=== PATIENT | female | born 1980 | race Caucasian/White ===

== ENCOUNTER 2017-04-12 20:06 | Inpatient (IN) | payer OTHER, BC ==
[2017-04-12] MEDS ORDERED: Sodium Chloride 0.9% 1,000 ML IV STA (21:12)
[2017-04-12 21:29] LABS: BASO # 0.1 K/uL (0.0-0.2); BASO % 1.4 % (0.0-2.0); EOS # 0.1 K/uL (0.0-0.7); EOS % 1.2 % (0.0-4.0); HEMATOCRIT 37.4 % (34.0-47.0); LYMPH # 3.4 K/uL (1.0-4.3); LYMPH % 48.9 % (20.0-40.0); MEAN CELL VOLUME 95.2 fl (81.0-99.0); MEAN CORPUSCULAR HEMOGLOBIN 31.7 pg (27.0-31.0); MEAN CORPUSCULAR HGB CONC 33.3 g/dL (33.0-37.0); MEAN PLATELET VOLUME 8.3 fl (7.2-11.7); MONO # 0.6 K/uL (0.0-0.8); MONO % 8.6 % (0.0-10.0); NEUT # 2.8 K/uL (1.8-7.0); NEUT % 39.9 % (50.0-75.0); NRBC % 0.1 % (0.0-0.0); RED CELL DISTRIBUTION WIDTH 13.4 % (11.5-14.5)
[2017-04-12 21:39] LABS: ALB/GLOB RATIO 1.1 (1.0-2.1); ALKALINE PHOSPHATASE 65 U/L (38-126); ALT/SGPT 36 U/L (9-52); AST/SGOT 50 U/L (14-36); BILIRUBIN,TOTAL 0.4 mg/dl (0.2-1.3); BLOOD UREA NITROGEN 12 mg/dl (7-17); CALCIUM 9.4 mg/dL (8.4-10.2); CARBON DIOXIDE 26 mmol/L (22-30); CHLORIDE 105 mmol/L (98-107); GFR AFRICAN-AMERICAN > 60; GLUCOSE,RANDOM 90 mg/dL (65-105); POTASSIUM 4.1 MMOL/L (3.6-5.0); SODIUM 139 mmol/l (132-148); TOTAL PROTEIN 8.1 G/DL (6.3-8.2)
[2017-04-12] MEDS ORDERED: Piperacillin/Tazobact 4.5 GM in Sodium Chloride 0.9% 100 ML IVPB ONE (22:00)
--- NOTE | 2017-04-12 22:42 | ED PDOC ---
HPI: Back Time Seen by Provider: 04/12/17 20:20 Chief Complaint (Nursing): Back Pain Chief Complaint (Provider): Buttock pain History Per: Patient History/Exam Limitations: no limitations Onset/Duration Of Symptoms: Days (x2-3 months) Current Symptoms Are (Timing): Still Present Additional Complaint(s): Ingrid Macario is a 36 year old female who presents to the emergency department with a complaint of increasing bilateral buttock pain (left > right) with painful lumpy massess associated with lower back pain, swelling and redness ongoing for 2-3 months status post injection in buttock area. Denied any fever, chills, vomiting, or diarrhea. PT was taking oral antibiotics as outpatient but cant remember the name. but pt has persistence of symptoms. PMD: none provided Past Medical History Reviewed: Historical Data, Nursing Documentation, Vital Signs Vital Signs: Last Vital Signs Temp 97.4 F L 04/12/17 20:12 Pulse 103 H 04/12/17 20:12 Resp 18 04/12/17 20:12 BP 131/75 04/12/17 20:12 Pulse Ox 100 04/12/17 20:12 - Medical History PMH: No Chronic Diseases - Surgical History Other surgeries: breast augmentation - Family History Family History: States: Unknown Family Hx - Social History Current smoker - smoking cessation education provided: No Alcohol: None Drugs: Denies - Home Medications Home Medications: Ambulatory Orders Medication Instructions Recorded ARIPiprazole [Abilify] 10 mg PO DAILY 04/13/17 Clonazepam [Klonopin] 0.5 mg PO DAILY 04/13/17 Gabapentin [Neurontin] 100 mg PO BID 04/13/17 Mirtazapine [Remeron] 30 mg PO DAILY 04/13/17 Spironolactone [Aldactone] 50 mg PO BID 04/13/17 Valacyclovir HCl [Valacyclovir] 500 mg PO DAILY 04/13/17 - Allergies Allergies/Adverse Reactions: Allergies Allergy/AdvReac Type Severity Reaction Status Date / Time No Known Allergies Allergy Verified 04/12/17 20:11 Review of Systems ROS Statement: Except As Marked, All Systems Reviewed And Found Negative Constitutional: Negative for: Fever, Chills Gastrointestinal: Positive for: Other (increasing bilateral buttock pain with redness and swelling). Negative for: Vomiting, Diarrhea Musculoskeletal: Positive for: Back Pain (lower) Physical Exam - Reviewed Nursing Documentation Reviewed: Yes Vital Signs Reviewed: Yes - Physical Exam Appears: Positive for: Well, Non-toxic, No Acute Distress Head Exam: Positive for: ATRAUMATIC, NORMAL INSPECTION, NORMOCEPHALIC Skin: Positive for: Normal Color, Warm, Dry Neck: Positive for: Normal Cardiovascular/Chest: Positive for: Regular Rate, Rhythm Respiratory: Positive for: Normal Breath Sounds. Negative for: Respiratory Distress Gastrointestinal/Abdominal: Positive for: Normal Exam, Bowel Sounds, Soft Back: Positive for: Normal Inspection. Negative for: L CVA Tenderness, R CVA Tenderness Rectal: Positive for: Tenderness (buttock has areas of induration, tenderness discoloration on upper region possible underlying abscess. surrounding erythema. no open wounds. ). Negative for: Normal Exam Extremity: Positive for: Normal ROM. Negative for: Pedal Edema, Deformity Neurologic/Psych: Positive for: Alert, dental surgery doctor II-XII, Oriented - Laboratory Results Result Diagrams: 04/12/17 21:20 04/12/17 21:20 - ECG O2 Sat by Pulse Oximetry: 100 (RA) Pulse Ox Interpretation: Normal Medical Decision Making Medical Decision Making: Initial Impression: cellulitis/abscess S/P buttock injection Initial Plan: * Toradol 30mg IV - for pain * NS 1,000ml IV per 150mls/hr * Zosyn 100ml IVPB * Blood culture Time: 7 pt will need admission for failure of outpt treatment with oral antibiotics - so will need iv abx. first dose given in the ER. Dr. Feldman plastic surgeon road monkey was aware of patient -will see pt for evaluation of induration/abscess/cellulitis in buttock area. pt made aware of plan and agreeable. admit to hospitalist, Dr García made aware and accepted admission. final dx complicated cellulitis (failure of outpatient antibiotics) admit for iv abx and surgery consult Scribe Attestation: Documented by Xi Lassiter, acting as a scribe for Vicente August MD. Provider Scribe Attestation: All medical record entries made by the Scribe were at my direction and personally dictated by me. I have reviewed the chart and agree that the record accurately reflects my personal performance of the history, physical exam, medical decision making, and the department course for this patient. I have also personally directed, reviewed, and agree with the discharge instructions and disposition. Disposition - Clinical Impression Clinical Impression: Buttock pain, Abscess, Cellulitis - Patient ED Disposition Is Patient to be Admitted: Yes Doctor Will See Patient In The: Hospital Counseled Patient/Family Regarding: Diagnosis - Disposition Disposition Time: 22:00 Condition: STABLE
--- NOTE | 2017-04-12 23:44 | CP.PCM.HP ---
History of Present Illness - History of Present Illness History of Present Illness: PCP: Not on Staff Chief Complaint: Pain to the Buttocks and to the lower back/Fever HPI: 36 years old female with hx of seizure, Anxiety depression, Fat injected into the Buttocks and approximately one year ago an unknown substance injected in the Buttocks for augmentation. She comes referring a few days of worsening pain to both Buttocks ( left> right) radiating across the lower back and associated with painful lumpy masses and erythema at the buttocks. She referred fever 2 days prior to this admission with nausea. no SOB, Chest pains, Diarrhea , Dysuria. 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 absent: Anorexia, Chills - EENT Eyes: Requires Corrective Lenses. absent: Diplopia, Floaters, Photophobia, Sees Flashes Ears: absent: Decreased Hearing, Ear Discharge, Ear Pain, Tinnitus Nose/Mouth/Throat: absent: Epistaxis, Nasal Congestion, Nasal Discharge, Sinus Pain, Sinus Pressure - Cardiovascular Cardiovascular: absent: Chest Pain, Dyspnea, Edema - Respiratory Respiratory: absent: Cough, Dyspnea, Wheezing, Stridor - Gastrointestinal Gastrointestinal: Nausea. absent: Abdominal Pain, Constipation, Diarrhea - Genitourinary Genitourinary: Urinary Frequency. absent: Dysuria, Flank Pain, Hematuria - Musculoskeletal Musculoskeletal: Back Pain Additional comments: lower back pain. Pain to both left and right Buttocks. - Integumentary Integumentary: Acne. absent: Pruritus, Rash - Neurological Neurological: Headaches. absent: Confusion, Focal Weakness, Paresthesias, Weakness - Psychiatric Psychiatric: Anxiety, Depression. absent: Panic Attacks - Endocrine Endocrine: absent: Palpitations, Polydipsia, Polyphagia, Polyuria - Hematologic/Lymphatic Hematologic: absent: Easy Bleeding, Easy Bruising Past Patient History - Past Social History Smoking Status: Never Smoked Chewing Tobacco Use: No Cigar Use: No Alcohol: Social Drugs: Cannabis Home Situation {Lives}: Alone - CARDIAC Hx Cardiac Disorders: No - PULMONARY Hx Respiratory Disorders: No - NEUROLOGICAL Hx Migraine: Yes - HEENT Hx HEENT Problems: No - RENAL Hx Chronic Kidney Disease: No - ENDOCRINE/METABOLIC Hx Endocrine Disorders: No - HEMATOLOGICAL/ONCOLOGICAL Hx Blood Disorders: No - INTEGUMENTARY Hx Dermatological Problems: No - MUSCULOSKELETAL/RHEUMATOLOGICAL Hx Back Pain: Yes - GASTROINTESTINAL Hx Gastrointestinal Disorders: No - GENITOURINARY/GYNECOLOGICAL Hx Genitourinary Disorders: No Other/Comment: Breast Augmentation x4. Buttocks Augmentation - PSYCHIATRIC Hx Anxiety: Yes Hx Bipolar Disorder: Yes Hx Depression: Yes - SURGICAL HISTORY Hx Hysterectomy: Yes - ANESTHESIA Hx Anesthesia: Yes Hx Anesthesia Reactions: No Meds Allergies/Adverse Reactions: Allergies Allergy/AdvReac Type Severity Reaction Status Date / Time No Known Allergies Allergy Verified 04/12/17 20:11 Physical Exam - Constitutional Appears: No Acute Distress - Head Exam Head Exam: ATRAUMATIC, NORMAL INSPECTION, NORMOCEPHALIC - Eye Exam Eye Exam: EOMI, Normal appearance Pupil Exam: NORMAL ACCOMODATION, PERRL - ENT Exam ENT Exam: Mucous Membranes Moist, Normal Exam, Normal External Ear Exam, Normal Oropharynx - Neck Exam Neck exam: Positive for: Full Rom, Normal Inspection. Negative for: Lymphadenopathy, Tenderness - Respiratory Exam Respiratory Exam: Clear to Auscultation Bilateral. absent: Rales, Rhonchi, Wheezes - Cardiovascular Exam Cardiovascular Exam: REGULAR RHYTHM, RRR, +S1, +S2. absent: Gallop, JVD - GI/Abdominal Exam GI & Abdominal Exam: Normal Bowel Sounds, Soft. absent: Mass, Organomegaly, Tenderness - Rectal Exam Rectal Exam: Deferred - Extremities Exam Extremities exam: Positive for: full ROM, normal inspection. Negative for: calf tenderness, joint swelling, pedal edema - Back Exam Back exam: NORMAL INSPECTION. absent: CVA tenderness (L), CVA tenderness (R) Additional comments: Buttocks: With erythema at both rytyo17by diameter each, with areas hard and tender on palpation. - Neurological Exam Neurological exam: Alert, CN II-XII Intact, Oriented x3, Reflexes Normal - Psychiatric Exam Psychiatric exam: Normal Affect, Normal Mood - Skin Skin Exam: Dry, Intact, Warm Results - Vital Signs Recent Vital Signs: Last Vital Signs Temp 97.4 F L 04/12/17 20:12 Pulse 103 H 04/12/17 20:12 Resp 18 04/12/17 20:12 BP 131/75 04/12/17 20:12 Pulse Ox 100 04/12/17 22:49 - Labs Result Diagrams: 04/12/17 21:20 04/12/17 21:20 Assessment & Plan - Assessment and Plan (Free Text) Assessment: #. Cellulitis with soft tissue Necrosis at both Buttocks #. Lower back pain Plan: 36 years old female with hx of seizure, Anxiety depression, Fat injected into the Buttocks and approximately one year ago an unknown substance injected in the Buttocks for augmentation. She comes referring a few days of worsening pain to both Buttocks ( left> right) radiating across the lower back and associated with painful lumpy masses and erythema at the buttocks. #. Cellulitis with soft tissue Necrosis at both Buttocks - Admit for IV antibiotics - Zosyn - pain management with Zosyn - follow Blood cultures #. Lower back pain - Pain management with Toradol - MRI of lower back anf pelvis without contrast. #. DVT prophylaxis with Lovenox #. Code Status: Full - Date & Time Date: 04/12/17 Time: 23:44
[2017-04-13] MEDS: Piperacillin/Tazobact 3.375 GM in Sodium Chloride 0.9% 100 ML IVPB SCH ×2 (04:40→11:28)
--- NOTE | 2017-04-13 08:45 | CP.PCM.PN ---
Subjective - Date & Time of Evaluation Date of Evaluation: 04/13/17 Time of Evaluation: 08:44 - Subjective Subjective: pt doing well this morning no complaints for MRI HD stable nad Objective - Vital Signs/Intake and Output Vital Signs (last 24 hours): Temp Pulse Resp BP Pulse Ox 98.4 F 79 18 106/71 100 04/13/17 07:24 04/13/17 07:24 04/13/17 07:24 04/13/17 07:24 04/13/17 07:24 Vitals reviewed Constitutional- cooperative, awake, alert. Head- NCAT, PERRL Eye- PERRL, normal accommodation ENT- normal exam, MMM. Neck- normal inspection, supple, no JVD Respiratory- decreased BS, no wheezes rales rhonchi Cardiovascular- RRR, +S1, +S2 no MRG GI/Abdominal- normal bowel sounds, soft Extremities Exam- normal capillary refill, normal inspection Neurological Exam- alert, oriented Psych - normal mood, normal affect - Medications Medications: Current Medications Acetaminophen (Tylenol 325mg Tab) 650 mg PO Q4 PRN PRN Reason: Pain, Mild (1-3) Acetaminophen (Tylenol 325mg Tab) 650 mg PO Q4 PRN PRN Reason: Fever >100.4 F Aripiprazole (Abilify) 10 mg PO HS [facility] Clonazepam (Klonopin) 0.5 mg PO BID PRN PRN Reason: Anxiety Enoxaparin Sodium (Lovenox) 40 mg SC DAILY [facility] PRN Reason: Protocol Gabapentin (Neurontin) 300 mg PO BID [facility] Home Med (Home Med) 1 unit PO DAILY [facility] Piperacillin Sod/Tazobactam (Sod 3.375 gm/ Sodium Chloride) 100 mls @ 100 mls/ hr IVPB Q6 [facility] Last Admin: 04/13/17 04:40 Dose: 100 mls/hr Ketorolac Tromethamine (Toradol) 30 mg IVP Q6 PRN PRN Reason: Pain, severe (8-10) Last Admin: 04/13/17 01:08 Dose: 30 mg Ketorolac Tromethamine (Toradol) 15 mg IVP Q6 PRN PRN Reason: Pain, moderate (4-7) Mirtazapine (Remeron) 30 mg PO HS [facility] Spironolactone (Aldactone) 50 mg PO BID [facility] - Labs Labs: PT 11.2 Seconds (9.8-13.1) 04/12/17 23:54 INR 1.1 (0.9-1.2) 04/12/17 23:54 Assessment and Plan - Assessment and Plan (Free Text) Plan: 36 years old female with hx of seizure, Anxiety depression, Fat injected into the Buttocks and approximately one year ago an unknown substance injected in the Buttocks for augmentation. She comes referring a few days of worsening pain to both Buttocks ( left> right) radiating across the lower back and associated with painful lumpy masses and erythema at the buttocks. Cellulitis with soft tissue Necrosis at both Buttocks - Admit for IV antibiotics - MRI today, read pending - Plastics Consult: Dr. Saroj Jernigan - pain management with Zosyn - follow Blood cultures Lower back pain - Pain management with Toradol - MRI of lower back and pelvis without contrast. Anxiety - Psych Consult Dr. Montemayor appreciated - continue Remeron, Abilify, Klonopin PRN DVT prophylaxis with Lovenox Code Status: Full
[2017-04-13] MEDS ORDERED: VALTREX 500 MG PO SCH (09:00)
[2017-04-13] MEDS: Enoxaparin 40 mg Syringe SC SCH ×2 (09:48→10:13)
--- NOTE | 2017-04-13 10:36 | CARD ---
APPROVED REPORT EKG Measurement Heart [id number] <Conclusion> Normal sinus rhythm Possible Left atrial enlargement Early repolarization Borderline ECG
--- NOTE | 2017-04-13 11:54 | MRI ---
PROCEDURE: MRI lumbar spine dated 04/13/2017 HISTORY: Low back and buttock pain. COMPARISON: Correlation made with concurrent the MRI of the pelvis TECHNIQUE: Multiecho multiplanar sequences were performed through the lumbar spine without the use of intravenous contrast. FINDINGS: The current study reveals no acute compression fractures nor retropulsed fragments. . Vertebral bodies exhibit relatively normal stature. Vertebral bodies and facets normally aligned. There is relatively adequate disc height and hydration. No disc herniations nor significant disc bulges. The facet joints are slightly prominent at the L5-S1 through L3-L4 levels in somewhat decreasing order of severity. The overall central bony canal and exit foramina appear adequate. The conus terminates at approximately the lower L1-L2 level. There appear to be a scattered subcutaneous granulomas extending to approximately the lower L3 level likely representing migration of numerous granulomas within the soft tissues of the buttock, the latter of which is best appreciated on concurrent MRI of the pelvis. Note made of multiple follicular cysts right ovary. Impression: No acute compression fractures no retropulsed fragments. No evidence of disc herniation or significant disc bulges. Overall central bony canal and exit foramina appear adequate. Scattered posterior subcutaneous granulomata extending to the level of L3 likely representing migration of numerous granulomas within the soft tissues of the buttock.
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
--- NOTE | 2017-04-13 12:39 | MRI ---
PROCEDURE: MRI of the pelvis dated 04/13/2017. HISTORY: Lower back and buttock pain. COMPARISON: No prior studies available comparison. TECHNIQUE: Multiplanar, multi sequence MR images of the pelvis were obtained. No intravenous gadolinium contrast was injected. FINDINGS: Current study reveals too numerous to count rounded/elliptical shaped varying sized nodular foci scattered throughout the subcutaneous tissues and musculature of the buttock bilaterally consistent with injection granulomata. There may also be some infiltration changes within the surrounding soft tissues suggesting cellulitis. No evidence of definitive subcutaneous air. UTERUS: Apparent hysterectomy OVARIES/ ADNEXA: Right ovary: Multiple bilateral follicular cysts Left ovary: Multiple bilateral follicular cysts. . Fallopian tubes: Not visualized. No evidence of hydrosalpinx. BOWEL: Partially visualized rectosigmoid colon is grossly unremarkable. LYMPH NODES: No lymphadenopathy. BLADDER: Unremarkable. FREE FLUID: None. PELVIC BONES: Grossly unremarkable. OTHER FINDINGS: Urinary bladder wall is slightly thickened likely due to incomplete distention however cystitis could be excluded with clinical correlation and urinalysis if clinically indicated. IMPRESSION: Multiple injection granulomata scattered throughout the subcutaneous tissues of the buttock and subjacent musculature and suspected surrounding cellulitis. Multiple bilateral follicular cysts.
[2017-04-13] MEDS: Ampicillin/Sulbactam 1.5 GM in Sodium Chloride 0.9% 100 ML IVPB SCH ×2 (17:12→22:14)
[2017-04-13] MEDS: VALTREX 500 MG PO SCH (19:24)
[2017-04-13 20:51] LABS: IMMUNOGLOBULIN G 1684.8 mg/dL (700.0-1600.0)
[2017-04-13 20:52] LABS: IMMUNOGLOBULIN A 110.1 mg/dL (70.0-400.0)
[2017-04-14] MEDS: Lactated Ringer's 1,000 ML IV SCH (00:53)
[2017-04-14] MEDS: Ampicillin/Sulbactam 1.5 GM in Sodium Chloride 0.9% 100 ML IVPB SCH ×4 (03:40→21:22)
[2017-04-14 07:25] LABS: TOTAL PROTEIN, SERUM 6.2 g/dL (6.1-8.1)
[2017-04-14] MEDS ORDERED: Lidocaine 1% Inj (20ml) ONE (07:31)
[2017-04-14] MEDS ORDERED: SENSORCAINE 0.5% W/EPINEPHRINE 50ML MDV IJ ONE (07:32)
[2017-04-14] MEDS ORDERED: Bupivacaine 0.5% Inj(30mL) ONE (07:32)
[2017-04-14] MEDS ORDERED: Midazolam 2 MG/2 ML VIAL ONE (07:44)
[2017-04-14] MEDS ORDERED: Propofol 10 mg/ml Inj (20 ML) ONE (07:44)
[2017-04-14] MEDS ORDERED: Neostigmine Methylsulfate 3mg/3ml Syringe IV ONE (07:45)
[2017-04-14] MEDS ORDERED: Rocuronium 10 mg/ml (5 ml) ONE ×2 (07:45→09:36)
[2017-04-14] MEDS ORDERED: Succinylcholine 200 mg/10 ml Inj IV ONE (07:45)
[2017-04-14] MEDS ORDERED: Sevoflurane - Inhalation Anesthetic Liq (250 ml) ONE ×2 (07:47→07:50)
[2017-04-14] MEDS ORDERED: Lactated Ringer's 1,000 ML IV ONE (08:00)
[2017-04-14] MEDS ORDERED: Lidocaine 4% (Laryng-O-Jet) Kit MM ONE (08:05)
[2017-04-14] MEDS ORDERED: Sodium Chloride 0.9% 1,000 ML IV ONE (09:00)
[2017-04-14] MEDS: VALTREX 500 MG PO SCH (09:15)
[2017-04-14] MEDS ORDERED: Liquid Adhesive TOP ONE (09:28)
[2017-04-14 09:49] LABS: % CD3 (MATURE T CELL) 71 Percent (57-85)
[2017-04-14] MEDS ORDERED: Oxycodone/Acetaminophen 5/325 mg Tab PO PRN (10:53)
--- NOTE | 2017-04-14 10:59 | PCM.SURG1 ---
Surgeon's Initial Post Op Note - Surgeon's Notes Surgeon: Dr. Kyle Dyed Raw Stock Blower Feeder: Emiliana Ferro PGY2 Type of Anesthesia: General Endo Pre-Operative Diagnosis: buttocks and back cellulitis, foreign body, soft tissue necrosis Operative Findings: Same Post-Operative Diagnosis: Same Operation Performed: Debridement of necrotic soft tissue and skin, delayed flap of b/l back and buttocks, vesojet, wound vac x2. Specimen/Specimens Removed: necrotic skin, soft tissue, foreign body Estimated Blood Loss: EBL {In ML}: 400 Blood Products Given: PRBC Drains Used: Wound Vac Post-Op Condition: Fair Date of Surgery/Procedure: 04/14/17 Time of Surgery/Procedure: 11:00
[2017-04-14] MEDS: HYDROmorphone 0.5 mg/0.5 ml ISec IVP PRN ×2 (11:35→12:30)
--- NOTE | 2017-04-14 13:35 | CP.PCM.PN ---
Subjective - Date & Time of Evaluation Date of Evaluation: 04/14/17 Time of Evaluation: 13:33 - Subjective Subjective: pt doing well tolerated surgery well HD stable no complaints pain controlled NAD Objective - Vital Signs/Intake and Output Vital Signs (last 24 hours): Temp Pulse Resp BP Pulse Ox 97.9 F 77 18 105/75 100 04/14/17 07:30 04/14/17 07:30 04/14/17 07:30 04/14/17 07:30 04/14/17 07:30 Intake and Output: 04/14/17 04/14/17 06:59 18:59 Intake Total 1078 Output Total 200 Balance 878 - Medications Medications: Current Medications Acetaminophen (Tylenol 325mg Tab) 650 mg PO Q4 PRN PRN Reason: Pain, Mild (1-3) Acetaminophen (Tylenol 325mg Tab) 650 mg PO Q4 PRN PRN Reason: Fever >100.4 F Aripiprazole (Abilify) 10 mg PO HS [facility] Last Admin: 04/13/17 22:14 Dose: 10 mg Clonazepam (Klonopin) 0.5 mg PO TID PRN PRN Reason: Anxiety Enoxaparin Sodium (Lovenox) 40 mg SC DAILY [facility] PRN Reason: Protocol Last Admin: 04/13/17 10:13 Dose: Not Given Gabapentin (Neurontin) 300 mg PO BID [facility] Last Admin: 04/14/17 09:15 Dose: Not Given Heparin Sodium (Porcine) (Heparin) 5,000 units SC Q8 [facility]ABELLA PRN Reason: Protocol Home Med (Patient's Own Medication) 1 unit PO DAILY [facility] Last Admin: 04/14/17 09:15 Dose: Not Given Hydromorphone HCl (Dilaudid) 0.5 mg IVP Q4 PRN PRN Reason: Pain, moderate (4-7) Ampicillin Sodium/Sulbactam (Sodium 1.5 gm/ Sodium Chloride) 100 mls @ 100 mls/ hr IVPB Q6 [facility] Last Admin: 04/14/17 03:40 Dose: 100 mls/hr Lactated Ringer's (Lactated Ringer's) 1,000 mls @ 100 mls/hr IV .Q10H [facility] Last Admin: 04/14/17 00:53 Dose: 100 mls/hr Sodium Chloride (Sodium Chloride 0.9%) 1,000 mls @ 125 mls/hr IV .Q8H [facility] Ketorolac Tromethamine (Toradol) 30 mg IVP Q6 PRN PRN Reason: Pain, severe (8-10) Last Admin: 04/13/17 01:08 Dose: 30 mg Ketorolac Tromethamine (Toradol) 15 mg IVP Q6 PRN PRN Reason: Pain, moderate (4-7) Mirtazapine (Remeron) 30 mg PO HS [facility] Last Admin: 04/13/17 22:13 Dose: 30 mg Oxycodone/Acetaminophen (Percocet 5/325 Mg Tab) 2 tab PO Q4 PRN PRN Reason: Pain, Mild (1-3) Stop: 04/17/17 10:54 Spironolactone (Aldactone) 50 mg PO BID [facility] Last Admin: 04/14/17 09:14 Dose: Not Given - Labs Labs: PT 11.2 Seconds (9.8-13.1) 04/12/17 23:54 INR 1.1 (0.9-1.2) 04/12/17 23:54 - Constitutional Appears: Non-toxic, No Acute Distress - Head Exam Head Exam: ATRAUMATIC, NORMOCEPHALIC - Eye Exam Eye Exam: EOMI, Normal appearance, PERRL - ENT Exam ENT Exam: Mucous Membranes Moist, Normal Oropharynx - Respiratory Exam Respiratory Exam: Clear to Ausculation Bilateral, NORMAL BREATHING PATTERN - Cardiovascular Exam Cardiovascular Exam: RRR, +S1, +S2 - GI/Abdominal Exam GI & Abdominal Exam: Soft, Normal Bowel Sounds. absent: Tenderness, Organomegaly - Extremities Exam Extremities Exam: Normal Capillary Refill. absent: Pedal Edema - Back Exam Back Exam: absent: CVA tenderness (L), CVA tenderness (R) - Neurological Exam Neurological Exam: Alert, Awake - Psychiatric Exam Psychiatric exam: Normal Affect, Normal Mood - Skin Skin Exam: Dry, Normal Color, Warm Assessment and Plan - Assessment and Plan (Free Text) Plan: 36 years old female with hx of seizure, Anxiety depression, Fat injected into the Buttocks and approximately one year ago an unknown substance injected in the Buttocks for augmentation. She comes referring a few days of worsening pain to both Buttocks ( left> right) radiating across the lower back and associated with painful lumpy masses and erythema at the buttocks. Cellulitis with soft tissue Necrosis at both Buttocks - Admit for IV antibiotics - MRI today, read pending - Plastics Consult: Dr. Kyle - Pain management consult: Dr. Barrow for post op pain - s/p surgery, debridement and delayed flap - Zosyn - pain management with Zosyn - follow Blood cultures Lower back pain - Pain management with Toradol - MRI of lower back and pelvis without contrast. Anxiety - Psych Consult Dr. Montemayor appreciated - continue Remeron, Abilify, Klonopin PRN DVT prophylaxis with Lovenox Code Status: Full
[2017-04-14] MEDS: Sodium Chloride 0.9% 1,000 ML IV SCH ×3 (14:44→19:45)
[2017-04-14 18:29] LABS: Interpretation Negative (Negative)
[2017-04-14 18:30] LABS: HEMATOCRIT 32.9 % (34.0-47.0); MEAN CELL VOLUME 95.1 fl (81.0-99.0); MEAN CORPUSCULAR HEMOGLOBIN 30.9 pg (27.0-31.0); MEAN CORPUSCULAR HGB CONC 32.5 g/dL (33.0-37.0); RED CELL DISTRIBUTION WIDTH 14.5 % (11.5-14.5); WHITE BLOOD COUNT 17.7 K/uL (4.8-10.8)
[2017-04-15] MEDS: Sodium Chloride 0.9% 1,000 ML IV SCH ×3 (00:10→17:13)
[2017-04-15] MEDS: Ampicillin/Sulbactam 1.5 GM in Sodium Chloride 0.9% 100 ML IVPB SCH ×4 (03:26→22:00)
[2017-04-15 06:08] LABS: HEMATOCRIT 26.9 % (34.0-47.0); MEAN CELL VOLUME 95.6 fl (81.0-99.0); MEAN CORPUSCULAR HEMOGLOBIN 31.6 pg (27.0-31.0); RED CELL DISTRIBUTION WIDTH 14.8 % (11.5-14.5); WHITE BLOOD COUNT 13.2 K/uL (4.8-10.8)
[2017-04-15 06:19] LABS: ALKALINE PHOSPHATASE 28 U/L (38-126); ALT/SGPT 27 U/L (9-52); AST/SGOT 58 U/L (14-36); BILIRUBIN,TOTAL 0.5 mg/dl (0.2-1.3); BLOOD UREA NITROGEN 7 mg/dl (7-17); CALCIUM 7.5 mg/dL (8.4-10.2); CARBON DIOXIDE 23 mmol/L (22-30); CHLORIDE 110 mmol/L (98-107); GFR AFRICAN-AMERICAN > 60; GLUCOSE,RANDOM 98 mg/dL (65-105); POTASSIUM 3.9 MMOL/L (3.6-5.0); SODIUM 137 mmol/l (132-148); TOTAL PROTEIN 4.9 G/DL (6.3-8.2)
[2017-04-15 06:42] LABS: BETA 1 GLOBULIN 0.4 g/dL (0.4-0.6); BETA 2 GLOBULIN 0.3 g/dL (0.2-0.5); GAMMA GLOBULIN 1.6 g/dL (0.8-1.7)
[2017-04-15] MEDS: Enoxaparin 40 mg Syringe SC SCH (09:17)
[2017-04-15] MEDS: VALTREX 500 MG PO SCH (09:18)
--- NOTE | 2017-04-15 09:25 | CP.PCM.PN ---
Subjective - Date & Time of Evaluation Date of Evaluation: 04/15/17 Time of Evaluation: 09:22 - Subjective Subjective: Surgery Pt s&e. Pt had surgery yesterday and tolerated it well. Denies F/C/N/V/D/CP/ SOB. Pain controlled. + void. Objective - Vital Signs/Intake and Output Vital Signs (last 24 hours): Temp Pulse Resp BP Pulse Ox 98.6 F 102 H 18 113/65 100 04/15/17 07:52 04/15/17 07:52 04/15/17 07:52 04/15/17 07:52 04/15/17 07:52 Intake and Output: 04/15/17 04/15/17 06:59 18:59 Intake Total 700 Output Total 600 Balance 100 - Medications Medications: Current Medications Acetaminophen (Tylenol 325mg Tab) 650 mg PO Q4 PRN PRN Reason: Pain, Mild (1-3) Acetaminophen (Tylenol 325mg Tab) 650 mg PO Q4 PRN PRN Reason: Fever >100.4 F Aripiprazole (Abilify) 10 mg PO HS [facility] Last Admin: 04/14/17 21:26 Dose: 10 mg Clonazepam (Klonopin) 0.5 mg PO TID PRN PRN Reason: Anxiety Gabapentin (Neurontin) 300 mg PO BID [facility] Last Admin: 04/15/17 09:17 Dose: 300 mg Home Med (Patient's Own Medication) 1 unit PO DAILY [facility] Last Admin: 04/15/17 09:18 Dose: 1 unit Hydromorphone HCl (Dilaudid) 1 mg IVP Q3 PRN PRN Reason: Pain, severe (8-10) Last Admin: 04/15/17 05:38 Dose: 1 mg Ampicillin Sodium/Sulbactam (Sodium 1.5 gm/ Sodium Chloride) 100 mls @ 100 mls/ hr IVPB Q6 [facility] Last Admin: 04/15/17 09:16 Dose: 100 mls/hr Lactated Ringer's (Lactated Ringer's) 1,000 mls @ 100 mls/hr IV .Q10H [facility] Last Admin: 04/14/17 00:53 Dose: 100 mls/hr Sodium Chloride (Sodium Chloride 0.9%) 1,000 mls @ 125 mls/hr IV .Q8H [facility] Last Admin: 04/15/17 00:10 Dose: 125 mls/hr Ketorolac Tromethamine (Toradol) 30 mg IVP Q6 PRN PRN Reason: Pain, severe (8-10) Last Admin: 04/13/17 01:08 Dose: 30 mg Ketorolac Tromethamine (Toradol) 15 mg IVP Q6 PRN PRN Reason: Pain, moderate (4-7) Mirtazapine (Remeron) 30 mg PO HS [facility] Last Admin: 04/14/17 21:25 Dose: 30 mg Oxycodone/Acetaminophen (Percocet 5/325 Mg Tab) 2 tab PO Q4 PRN PRN Reason: Pain, Mild (1-3) Stop: 04/17/17 10:54 Spironolactone (Aldactone) 50 mg PO BID [facility] Last Admin: 04/15/17 09:16 Dose: 50 mg - Labs Labs: 04/15/17 04:25 04/15/17 04:25 PT 11.2 Seconds (9.8-13.1) 04/12/17 23:54 INR 1.1 (0.9-1.2) 04/12/17 23:54 - Constitutional Appears: No Acute Distress - Head Exam Head Exam: ATRAUMATIC, NORMAL INSPECTION, NORMOCEPHALIC - Eye Exam Eye Exam: EOMI, Normal appearance, PERRL Pupil Exam: NORMAL ACCOMODATION, PERRL - ENT Exam ENT Exam: Mucous Membranes Moist, Normal Exam - Neck Exam Neck Exam: Full ROM, Normal Inspection. absent: Lymphadenopathy - Respiratory Exam Respiratory Exam: Clear to Ausculation Bilateral, NORMAL BREATHING PATTERN - Cardiovascular Exam Cardiovascular Exam: REGULAR RHYTHM, +S1, +S2. absent: Murmur - GI/Abdominal Exam GI & Abdominal Exam: Soft, Normal Bowel Sounds. absent: Tenderness - Extremities Exam Extremities Exam: Full ROM, Normal Capillary Refill, Normal Inspection. absent : Joint Swelling, Pedal Edema - Back Exam Back Exam: absent: CVA tenderness (L), CVA tenderness (R), NORMAL INSPECTION Additional comments: Incision has wound vac. No leak. 500cc in vac. - Neurological Exam Neurological Exam: Alert, Awake, CN II-XII Intact, Oriented x3 - Psychiatric Exam Psychiatric exam: Normal Affect, Normal Mood - Skin Skin Exam: Dry, Intact, Normal Color, Warm Assessment and Plan - Assessment and Plan (Free Text) Assessment: POD 1 s/p buttocks and back delayed flap, wound debridement -Plan for OR tomorrow for debridement and flap closure -Encourage OOB and ambulation - IS -Pain control Will DW attending
--- NOTE | 2017-04-15 11:00 | CP.PCM.PN ---
Subjective - Date & Time of Evaluation Date of Evaluation: 04/15/17 Time of Evaluation: 10:56 - Subjective Subjective: PATIENT DOING WELL NO COMPLAINTS PAIN CONTROLLED VOIDING. HD STABLE Objective - Vital Signs/Intake and Output Vital Signs (last 24 hours): Temp Pulse Resp BP Pulse Ox 98.6 F 102 H 18 113/65 100 04/15/17 07:52 04/15/17 07:52 04/15/17 07:52 04/15/17 07:52 04/15/17 07:52 Intake and Output: 04/15/17 04/15/17 06:59 18:59 Intake Total 700 Output Total 600 Balance 100 - Medications Medications: Current Medications Acetaminophen (Tylenol 325mg Tab) 650 mg PO Q4 PRN PRN Reason: Pain, Mild (1-3) Acetaminophen (Tylenol 325mg Tab) 650 mg PO Q4 PRN PRN Reason: Fever >100.4 F Aripiprazole (Abilify) 10 mg PO HS [facility] Last Admin: 04/14/17 21:26 Dose: 10 mg Clonazepam (Klonopin) 0.5 mg PO TID PRN PRN Reason: Anxiety Gabapentin (Neurontin) 300 mg PO BID [facility] Last Admin: 04/15/17 09:17 Dose: 300 mg Home Med (Patient's Own Medication) 1 unit PO DAILY [facility] Last Admin: 04/15/17 09:18 Dose: 1 unit Hydromorphone HCl (Dilaudid) 1 mg IVP Q3 PRN PRN Reason: Pain, severe (8-10) Last Admin: 04/15/17 09:38 Dose: 1 mg Ampicillin Sodium/Sulbactam (Sodium 1.5 gm/ Sodium Chloride) 100 mls @ 100 mls/ hr IVPB Q6 [facility] Last Admin: 04/15/17 09:16 Dose: 100 mls/hr Lactated Ringer's (Lactated Ringer's) 1,000 mls @ 100 mls/hr IV .Q10H [facility] Last Admin: 04/14/17 00:53 Dose: 100 mls/hr Sodium Chloride (Sodium Chloride 0.9%) 1,000 mls @ 125 mls/hr IV .Q8H [facility] Last Admin: 04/15/17 00:10 Dose: 125 mls/hr Ketorolac Tromethamine (Toradol) 30 mg IVP Q6 PRN PRN Reason: Pain, severe (8-10) Last Admin: 04/13/17 01:08 Dose: 30 mg Ketorolac Tromethamine (Toradol) 15 mg IVP Q6 PRN PRN Reason: Pain, moderate (4-7) Mirtazapine (Remeron) 30 mg PO HS [facility] Last Admin: 04/14/17 21:25 Dose: 30 mg Oxycodone/Acetaminophen (Percocet 5/325 Mg Tab) 2 tab PO Q4 PRN PRN Reason: Pain, Mild (1-3) Stop: 04/17/17 10:54 Spironolactone (Aldactone) 50 mg PO BID [facility] Last Admin: 04/15/17 09:16 Dose: 50 mg - Labs Labs: 04/15/17 04:25 04/15/17 04:25 PT 11.2 Seconds (9.8-13.1) 04/12/17 23:54 INR 1.1 (0.9-1.2) 04/12/17 23:54 - Constitutional Appears: Non-toxic, No Acute Distress - Head Exam Head Exam: ATRAUMATIC, NORMOCEPHALIC - Eye Exam Eye Exam: EOMI, Normal appearance, PERRL Pupil Exam: NORMAL ACCOMODATION - ENT Exam ENT Exam: Mucous Membranes Moist, Normal Oropharynx - Neck Exam Neck Exam: Full ROM, Normal Inspection - Respiratory Exam Respiratory Exam: Clear to Ausculation Bilateral, NORMAL BREATHING PATTERN - Cardiovascular Exam Cardiovascular Exam: RRR, +S1, +S2 - GI/Abdominal Exam GI & Abdominal Exam: Soft, Normal Bowel Sounds. absent: Tenderness, Hyperactive Bowel Sounds, Organomegaly - Extremities Exam Extremities Exam: Normal Capillary Refill. absent: Joint Swelling - Back Exam Back Exam: absent: CVA tenderness (L), CVA tenderness (R), paraspinal tenderness - Neurological Exam Neurological Exam: Alert, Awake, Oriented x3 - Psychiatric Exam Psychiatric exam: Normal Affect, Normal Mood - Skin Skin Exam: Dry, Warm Assessment and Plan - Assessment and Plan (Free Text) Plan: 36 years old female with hx of seizure, Anxiety depression, Fat injected into the Buttocks and approximately one year ago an unknown substance injected in the Buttocks for augmentation. She comes referring a few days of worsening pain to both Buttocks ( left> right) radiating across the lower back and associated with painful lumpy masses and erythema at the buttocks. Cellulitis with soft tissue Necrosis at both Buttocks - continue IV antibiotics - MRI of pelvis and lower back completed - Plastics Consult: Dr. Kyle, tolerated surgery well. - Pain management consult: Dr. Barrow for post op pain - s/p surgery, debridement and delayed flap - Zosyn - pain management with Zosyn - follow Blood cultures Lower back pain - Pain management with Toradol - MRI of lower back and pelvis without contrast No acute compression fractures or retropulsed fragments. No herniation. Scattered posterior subq granulomata Anxiety - Psych Consult Dr. Montemayor appreciated - continue Remeron, Abilify, Klonopin PRN DVT prophylaxis with Lovenox Code Status: Full
[2017-04-15] MEDS: Lactated Ringer's 1,000 ML IV SCH ×2 (17:29)
[2017-04-16] MEDS: Lactated Ringer's 1,000 ML IV SCH ×2 (02:01→12:36)
[2017-04-16] MEDS: Ampicillin/Sulbactam 1.5 GM in Sodium Chloride 0.9% 100 ML IVPB SCH ×4 (03:49→22:24)
[2017-04-16 07:41] LABS: HEMATOCRIT 22.7 % (34.0-47.0); MEAN CELL VOLUME 95.4 fl (81.0-99.0); MEAN CORPUSCULAR HEMOGLOBIN 31.8 pg (27.0-31.0); MEAN CORPUSCULAR HGB CONC 33.3 g/dL (33.0-37.0); RED CELL DISTRIBUTION WIDTH 14.7 % (11.5-14.5); WHITE BLOOD COUNT 11.1 K/uL (4.8-10.8)
[2017-04-16 07:58] LABS: ALKALINE PHOSPHATASE 37 U/L (38-126); ALT/SGPT 23 U/L (9-52); AST/SGOT 25 U/L (14-36); BILIRUBIN,TOTAL 0.2 mg/dl (0.2-1.3); BLOOD UREA NITROGEN 3 mg/dl (7-17); CALCIUM 7.8 mg/dL (8.4-10.2); CARBON DIOXIDE 27 mmol/L (22-30); CHLORIDE 108 mmol/L (98-107); GFR AFRICAN-AMERICAN > 60; GLUCOSE,RANDOM 99 mg/dL (65-105); POTASSIUM 3.2 MMOL/L (3.6-5.0); SODIUM 140 mmol/l (132-148); TOTAL PROTEIN 5.1 G/DL (6.3-8.2)
[2017-04-16] MEDS ORDERED: Potassium Ch 20mEq in D5-1/2NS 1,000 ML IV SCH (08:30)
[2017-04-16] MEDS: VALTREX 500 MG PO SCH (09:04)
--- NOTE | 2017-04-16 14:20 | CP.PCM.PN ---
Subjective - Date & Time of Evaluation Date of Evaluation: 04/16/17 Time of Evaluation: 10:00 - Subjective Subjective: Pt seen and examined. Continue to have pain on buttocks which respond readily to pain medication. Objective - Vital Signs/Intake and Output Vital Signs (last 24 hours): Temp Pulse Resp BP Pulse Ox 99.1 F 99 H 20 102/61 95 04/16/17 08:38 04/16/17 02:28 04/16/17 08:38 04/16/17 08:38 04/16/17 08:38 Intake and Output: 04/16/17 04/16/17 06:59 18:59 Output Total 400 Balance -400 - Medications Medications: Current Medications Acetaminophen (Tylenol 325mg Tab) 650 mg PO Q4 PRN PRN Reason: Pain, Mild (1-3) Acetaminophen (Tylenol 325mg Tab) 650 mg PO Q4 PRN PRN Reason: Fever >100.4 F Aripiprazole (Abilify) 10 mg PO HS [facility] Last Admin: 04/15/17 22:01 Dose: 10 mg Clonazepam (Klonopin) 0.5 mg PO TID PRN PRN Reason: Anxiety Gabapentin (Neurontin) 300 mg PO BID [facility] Last Admin: 04/16/17 09:01 Dose: 300 mg Heparin Sodium (Porcine) (Heparin) 5,000 units SC Q8 [facility]A PRN Reason: Protocol Last Admin: 04/15/17 17:28 Dose: 5,000 units Home Med (Patient's Own Medication) 1 unit PO DAILY [facility] Last Admin: 04/16/17 09:04 Dose: 1 unit Hydromorphone HCl (Dilaudid) 1 mg IVP Q3 PRN PRN Reason: Pain, severe (8-10) Last Admin: 04/16/17 11:13 Dose: 1 mg Ampicillin Sodium/Sulbactam (Sodium 1.5 gm/ Sodium Chloride) 100 mls @ 100 mls/ hr IVPB Q6 [facility] Last Admin: 04/16/17 12:38 Dose: 100 mls/hr Lactated Ringer's (Lactated Ringer's) 1,000 mls @ 100 mls/hr IV .Q10H [facility] Last Admin: 04/16/17 12:36 Dose: Not Given Potassium Chloride/Dextrose/Sod Cl (Potassium Chl 20 Meq In D5-1/2ns) 1,000 mls @ 125 mls/hr IV .Q8H [facility] Stop: 04/16/17 16:29 Last Admin: 04/16/17 10:00 Dose: 125 mls/hr Ketorolac Tromethamine (Toradol) 30 mg IVP Q6 PRN PRN Reason: Pain, severe (8-10) Last Admin: 04/13/17 01:08 Dose: 30 mg Ketorolac Tromethamine (Toradol) 15 mg IVP Q6 PRN PRN Reason: Pain, moderate (4-7) Mirtazapine (Remeron) 30 mg PO HS [facility] Last Admin: 04/15/17 22:01 Dose: 30 mg Oxycodone/Acetaminophen (Percocet 5/325 Mg Tab) 2 tab PO Q4 PRN PRN Reason: Pain, Mild (1-3) Stop: 04/17/17 10:54 Spironolactone (Aldactone) 50 mg PO BID [facility] Last Admin: 04/16/17 09:01 Dose: 50 mg - Labs Labs: 04/16/17 06:30 04/16/17 06:30 PT 11.2 Seconds (9.8-13.1) 04/12/17 23:54 INR 1.1 (0.9-1.2) 04/12/17 23:54 - Constitutional Appears: No Acute Distress - Head Exam Head Exam: ATRAUMATIC - Eye Exam Eye Exam: absent: Scleral icterus - ENT Exam ENT Exam: Mucous Membranes Moist - Neck Exam Neck Exam: absent: Meningismus - Respiratory Exam Respiratory Exam: absent: Rhonchi, Wheezes, Respiratory Distress - Cardiovascular Exam Cardiovascular Exam: REGULAR RHYTHM, +S1, +S2 - GI/Abdominal Exam GI & Abdominal Exam: Soft. absent: Tenderness - Rectal Exam Rectal Exam: Deferred - Back Exam Back Exam: absent: NORMAL INSPECTION (both wound vac intact and actively draining bloody materials) - Neurological Exam Neurological Exam: Alert, Oriented x3 - Psychiatric Exam Psychiatric exam: Normal Affect - Skin Skin Exam: Dry, Intact Assessment and Plan - Assessment and Plan (Free Text) Assessment: 36 yo female with history of seizure, anxiety/depression had Fat injected into her buttocks and a year ago an unknown substance was likewise injected in her buttocks for augmentation. She came into the ER complaining of worsening pain on erythematous lumpy masses on both buttocks (left>right) radiating to the lower back. 1. Cellulitis with soft tissue Necrosis at both Buttocks Post surgical debridement of necrotic soft tissue with placement of wound vac on each buttock by Dr Kyle, POD # 2 awaiting for 2nd stage surgery today continue IV Unasyn continue pain management 2. Lower back pain MRI of lower back and pelvis : no compression fractures, no disc herniation, scattered subcutaneous granulomata extending to the level of L3 likely migration from numerous granulomas within the soft tissues of the buttocks 3. Anxiety/Depression continue Ghada Carrillo Klonopin PRN Dr Montemayor on psyche consult 4. DVT prophylaxis continue Heparin 5000 units SC q 8hrs
[2017-04-16] MEDS ORDERED: Propofol 10 mg/ml Inj (20 ML) ONE (14:33)
[2017-04-16] MEDS ORDERED: Midazolam 2 MG/2 ML VIAL ONE (14:34)
[2017-04-16] MEDS ORDERED: Lidocaine 2% MPF (5 ml) Inj ONE (14:34)
[2017-04-16] MEDS ORDERED: Succinylcholine 200 mg/10 ml Inj IV ONE (14:34)
[2017-04-16] MEDS ORDERED: Sodium Chloride 0.9% 1,000 ML IV ONE ×2 (14:47→17:53)
[2017-04-16] MEDS ORDERED: Vecuronium 10 mg Inj ONE (15:01)
[2017-04-16] MEDS ORDERED: ePHEDrine 50 mg/ml Inj ONE (16:04)
[2017-04-16] MEDS ORDERED: Lactated Ringer's 1,000 ML IV ONE ×2 (16:10→19:00)
[2017-04-16] MEDS ORDERED: Dexamethasone 4 mg/1 ml ONE (16:27)
--- NOTE | 2017-04-16 18:37 | PCM.SURG1 ---
Surgeon's Initial Post Op Note - Surgeon's Notes Surgeon: Dr. Kyle Accountant Clerk: Emiliana Ferro PGY2, Beena PGY3 Type of Anesthesia: General Endo Pre-Operative Diagnosis: cellulitis, foreign body, soft tissue necrosis Operative Findings: Same Post-Operative Diagnosis: Same Operation Performed: Delayed debridement, advanced flap Specimen/Specimens Removed: foreign body, granuloma, inflammed skin and soft tissue Estimated Blood Loss: EBL {In ML}: 400 Blood Products Given: PRBC Drains Used: Wesley Adam, Wound Vac Post-Op Condition: Fair Date of Surgery/Procedure: 04/16/17 Time of Surgery/Procedure: 18:37
[2017-04-16] MEDS: HYDROmorphone 0.5 mg/0.5 ml ISec IVP PRN ×4 (18:50→19:20)
[2017-04-16 19:33] LABS: BASO % 0.2 % (0.0-2.0); EOS % 0.2 % (0.0-4.0); HEMATOCRIT 33.4 % (34.0-47.0); LYMPH # 1.8 K/uL (1.0-4.3); LYMPH % 11.6 % (20.0-40.0); MEAN CELL VOLUME 92.1 fl (81.0-99.0); MEAN CORPUSCULAR HEMOGLOBIN 30.2 pg (27.0-31.0); MEAN CORPUSCULAR HGB CONC 32.8 g/dL (33.0-37.0); MEAN PLATELET VOLUME 8.2 fl (7.2-11.7); MONO # 1.2 K/uL (0.0-0.8); MONO % 7.8 % (0.0-10.0); NEUT # 12.5 K/uL (1.8-7.0); NEUT % 80.2 % (50.0-75.0); RED CELL DISTRIBUTION WIDTH 15.6 % (11.5-14.5); WHITE BLOOD COUNT 15.6 K/uL (4.8-10.8)
[2017-04-17 01:36] LABS: IGG SUCLASS 4 62.6 mg/dL (4-86)
[2017-04-17] MEDS: HYDROmorphone 0.5 mg/0.5 ml ISec IVP PRN ×5 (02:32→20:50)
[2017-04-17] MEDS: Ampicillin/Sulbactam 1.5 GM in Sodium Chloride 0.9% 100 ML IVPB SCH ×4 (04:23→21:41)
[2017-04-17] MEDS: VALTREX 500 MG PO SCH (08:54)
[2017-04-17 09:50] LABS: BASO # 0.1 K/uL (0.0-0.2); BASO % 0.5 % (0.0-2.0); EOS % 0.3 % (0.0-4.0); HEMATOCRIT 25.6 % (34.0-47.0); LYMPH # 2.4 K/uL (1.0-4.3); LYMPH % 20.3 % (20.0-40.0); MEAN CELL VOLUME 90.3 fl (81.0-99.0); MEAN CORPUSCULAR HEMOGLOBIN 30.5 pg (27.0-31.0); MEAN CORPUSCULAR HGB CONC 33.8 g/dL (33.0-37.0); MEAN PLATELET VOLUME 8.2 fl (7.2-11.7); MONO % 8.5 % (0.0-10.0); NEUT # 8.3 K/uL (1.8-7.0); NEUT % 70.4 % (50.0-75.0); RED CELL DISTRIBUTION WIDTH 16.2 % (11.5-14.5); WHITE BLOOD COUNT 11.8 K/uL (4.8-10.8)
[2017-04-17 10:09] LABS: ALKALINE PHOSPHATASE 36 U/L (38-126); ALT/SGPT 26 U/L (9-52); AST/SGOT 66 U/L (14-36); BILIRUBIN,TOTAL 0.2 mg/dl (0.2-1.3); BLOOD UREA NITROGEN 5 mg/dl (7-17); CALCIUM 7.4 mg/dL (8.4-10.2); CARBON DIOXIDE 26 mmol/L (22-30); CHLORIDE 108 mmol/L (98-107); GFR AFRICAN-AMERICAN > 60; GLUCOSE,RANDOM 120 mg/dL (65-105); POTASSIUM 3.7 MMOL/L (3.6-5.0); SODIUM 137 mmol/l (132-148); TOTAL PROTEIN 4.5 G/DL (6.3-8.2)
[2017-04-17] MEDS: Lactated Ringer's 1,000 ML IV SCH ×2 (10:56→18:17)
[2017-04-17] MEDS: Bacitracin OINT 15GM TOP SCH ×2 (11:41→17:31)
--- NOTE | 2017-04-17 18:47 | CP.PCM.PN ---
Subjective - Date & Time of Evaluation Date of Evaluation: 04/17/17 Time of Evaluation: 10:25 - Subjective Subjective: Pt seen and examined. [place] sore on her buttocks but tolerable. Objective - Vital Signs/Intake and Output Vital Signs (last 24 hours): Temp Pulse Resp BP Pulse Ox 98.4 F 113 H 18 103/63 989 H 04/17/17 16:22 04/17/17 16:22 04/17/17 16:22 04/17/17 16:22 04/17/17 16:22 Intake and Output: 04/17/17 04/17/17 06:59 18:59 Intake Total 100 600 Output Total 15 240 Balance 85 360 - Medications Medications: Current Medications Acetaminophen (Tylenol 325mg Tab) 650 mg PO Q4 PRN PRN Reason: Pain, Mild (1-3) Acetaminophen (Tylenol 325mg Tab) 650 mg PO Q4 PRN PRN Reason: Fever >100.4 F Aripiprazole (Abilify) 10 mg PO HS [facility] Last Admin: 04/16/17 22:24 Dose: 10 mg Bacitracin (Bacitracin Oint) 1 applic TOP BID [facility] Last Admin: 04/17/17 17:31 Dose: 1 applic Clonazepam (Klonopin) 0.5 mg PO TID PRN PRN Reason: Anxiety Gabapentin (Neurontin) 300 mg PO BID [facility] Last Admin: 04/17/17 17:32 Dose: 300 mg Heparin Sodium (Porcine) (Heparin) 5,000 units SC Q8 [facility]A PRN Reason: Protocol Last Admin: 04/17/17 17:32 Dose: 5,000 units Home Med (Patient's Own Medication) 1 unit PO DAILY [facility] Last Admin: 04/17/17 08:54 Dose: 1 unit Hydromorphone HCl (Dilaudid) 1 mg IVP Q3 PRN PRN Reason: Pain, severe (8-10) Last Admin: 04/17/17 17:39 Dose: 1 mg Ampicillin Sodium/Sulbactam (Sodium 1.5 gm/ Sodium Chloride) 100 mls @ 100 mls/ hr IVPB Q6 [facility] Last Admin: 04/17/17 17:30 Dose: 100 mls/hr Lactated Ringer's (Lactated Ringer's) 1,000 mls @ 100 mls/hr IV .Q10H [facility] Last Admin: 04/17/17 18:17 Dose: Not Given Ketorolac Tromethamine (Toradol) 30 mg IVP Q6 PRN PRN Reason: Pain, severe (8-10) Last Admin: 04/13/17 01:08 Dose: 30 mg Ketorolac Tromethamine (Toradol) 15 mg IVP Q6 PRN PRN Reason: Pain, moderate (4-7) Mirtazapine (Remeron) 30 mg PO HS [facility] Last Admin: 04/16/17 22:24 Dose: 30 mg Spironolactone (Aldactone) 50 mg PO BID [facility] Last Admin: 04/17/17 17:31 Dose: 50 mg - Labs Labs: 04/17/17 08:20 04/17/17 08:20 PT 11.2 Seconds (9.8-13.1) 04/12/17 23:54 INR 1.1 (0.9-1.2) 04/12/17 23:54 - Constitutional Appears: No Acute Distress - Head Exam Head Exam: ATRAUMATIC - Eye Exam Eye Exam: absent: Scleral icterus - ENT Exam ENT Exam: Mucous Membranes Moist - Neck Exam Neck Exam: absent: Meningismus - Respiratory Exam Respiratory Exam: absent: Rhonchi, Wheezes, Respiratory Distress - Cardiovascular Exam Cardiovascular Exam: REGULAR RHYTHM, +S1, +S2 - GI/Abdominal Exam GI & Abdominal Exam: Soft. absent: Tenderness - Rectal Exam Rectal Exam: Deferred - Back Exam Additional comments: 3 wound vacs on each buttocks actively draining bloody materials - Neurological Exam Neurological Exam: Alert, Oriented x3 - Psychiatric Exam Psychiatric exam: Normal Affect - Skin Skin Exam: Dry, Intact Assessment and Plan - Assessment and Plan (Free Text) Assessment: 36 yo female with history of seizure, anxiety/depression had Fat injected into her buttocks and a year ago an unknown substance was likewise injected in her buttocks for augmentation. She came into the ER complaining of worsening pain on erythematous lumpy masses on both buttocks (left>right) radiating to the lower back. 1. Cellulitis with soft tissue Necrosis at both Buttocks Post surgical debridement of necrotic soft tissue with placement of wound vac on each buttock by Dr Kyle, POD # 3 2nd surgical debridement done yesterday with 6 wound [address] left in place, 3 each for each buttock continue IV Unasyn continue pain management 2. Lower back pain MRI of lower back and pelvis : no compression fractures, no disc herniation, scattered subcutaneous granulomata extending to the level of L3 likely migration from numerous granulomas within the soft tissues of the buttocks 3. Anxiety/Depression continue Ghada Carrillo Klonopin PRN Dr Montemayor on psyche consult 4. DVT prophylaxis continue Heparin 5000 units SC q 8hrs
--- NOTE | 2017-04-17 20:34 | CP.PCM.PN ---
Subjective - Date & Time of Evaluation Date of Evaluation: 04/17/17 Time of Evaluation: 20:32 - Subjective Subjective: Surgery Pt s&e. Pt underwent surgery yesterday. Tolerated it well. Pain controlled. + void. tolerating diet. Objective - Vital Signs/Intake and Output Vital Signs (last 24 hours): Temp Pulse Resp BP Pulse Ox 98.4 F 113 H 18 103/63 989 H 04/17/17 16:22 04/17/17 16:22 04/17/17 16:22 04/17/17 16:22 04/17/17 16:22 Intake and Output: 04/17/17 04/18/17 18:59 06:59 Intake Total 600 Output Total 240 Balance 360 - Medications Medications: Current Medications Acetaminophen (Tylenol 325mg Tab) 650 mg PO Q4 PRN PRN Reason: Pain, Mild (1-3) Acetaminophen (Tylenol 325mg Tab) 650 mg PO Q4 PRN PRN Reason: Fever >100.4 F Aripiprazole (Abilify) 10 mg PO HS [facility] Last Admin: 04/16/17 22:24 Dose: 10 mg Bacitracin (Bacitracin Oint) 1 applic TOP BID [facility] Last Admin: 04/17/17 17:31 Dose: 1 applic Clonazepam (Klonopin) 0.5 mg PO TID PRN PRN Reason: Anxiety Gabapentin (Neurontin) 300 mg PO BID [facility] Last Admin: 04/17/17 17:32 Dose: 300 mg Heparin Sodium (Porcine) (Heparin) 5,000 units SC Q8 [facility]A PRN Reason: Protocol Last Admin: 04/17/17 17:32 Dose: 5,000 units Home Med (Patient's Own Medication) 1 unit PO DAILY [facility] Last Admin: 04/17/17 08:54 Dose: 1 unit Hydromorphone HCl (Dilaudid) 1 mg IVP Q3 PRN PRN Reason: Pain, severe (8-10) Last Admin: 04/17/17 17:39 Dose: 1 mg Ampicillin Sodium/Sulbactam (Sodium 1.5 gm/ Sodium Chloride) 100 mls @ 100 mls/ hr IVPB Q6 [facility] Last Admin: 04/17/17 17:30 Dose: 100 mls/hr Lactated Ringer's (Lactated Ringer's) 1,000 mls @ 100 mls/hr IV .Q10H [facility] Last Admin: 04/17/17 18:17 Dose: Not Given Ketorolac Tromethamine (Toradol) 30 mg IVP Q6 PRN PRN Reason: Pain, severe (8-10) Last Admin: 04/13/17 01:08 Dose: 30 mg Ketorolac Tromethamine (Toradol) 15 mg IVP Q6 PRN PRN Reason: Pain, moderate (4-7) Mirtazapine (Remeron) 30 mg PO HS [facility] Last Admin: 04/16/17 22:24 Dose: 30 mg Spironolactone (Aldactone) 50 mg PO BID [facility] Last Admin: 04/17/17 17:31 Dose: 50 mg - Labs Labs: 04/17/17 08:20 04/17/17 08:20 PT 11.2 Seconds (9.8-13.1) 04/12/17 23:54 INR 1.1 (0.9-1.2) 04/12/17 23:54 - Constitutional Appears: No Acute Distress - Head Exam Head Exam: ATRAUMATIC, NORMAL INSPECTION, NORMOCEPHALIC - Eye Exam Eye Exam: EOMI, Normal appearance, PERRL Pupil Exam: NORMAL ACCOMODATION, PERRL - ENT Exam ENT Exam: Mucous Membranes Moist, Normal Exam - Neck Exam Neck Exam: Full ROM, Normal Inspection. absent: Lymphadenopathy - Respiratory Exam Respiratory Exam: Clear to Ausculation Bilateral, NORMAL BREATHING PATTERN - Cardiovascular Exam Cardiovascular Exam: REGULAR RHYTHM, +S1, +S2. absent: Murmur - GI/Abdominal Exam GI & Abdominal Exam: Soft, Normal Bowel Sounds. absent: Distended, Tenderness - Rectal Exam Rectal Exam: NORMAL INSPECTION - Exam Exam: NORMAL INSPECTION - Extremities Exam Extremities Exam: Full ROM, Normal Capillary Refill, Normal Inspection. absent : Joint Swelling, Pedal Edema - Back Exam Back Exam: Full ROM, tenderness Additional comments: 40cm incision covered on wound vac. No leak. SARAH drains: 500cc ss - Neurological Exam Neurological Exam: Alert, Awake, CN II-XII Intact, Normal Gait, Oriented x3 - Psychiatric Exam Psychiatric exam: Normal Affect, Normal Mood - Skin Skin Exam: Dry, Intact, Warm Assessment and Plan - Assessment and Plan (Free Text) Assessment: POD 1 s/p staged debridement and closure of flap. hgb 9 Monitor labs Reg diet Pain control Ok to DC with wound vac and drains with cipro BID [id number] F/u with Dr. Kyle in 1 week dW attending
[2017-04-18] MEDS: Ampicillin/Sulbactam 1.5 GM in Sodium Chloride 0.9% 100 ML IVPB SCH ×4 (04:54→21:44)
--- NOTE | 2017-04-18 08:14 | CP.PCM.PN ---
Subjective - Date & Time of Evaluation Date of Evaluation: 04/18/17 Time of Evaluation: 10:17 - Subjective Subjective: Surgery Pt s&e w attending. Pt febrile ON. 102.6. Pain controlled. Denies N/V/D/CP/SOB/ weakness. + amb w help. + void Objective - Vital Signs/Intake and Output Vital Signs (last 24 hours): Temp Pulse Resp BP Pulse Ox 99.5 F 118 H 19 83/56 L 97 04/18/17 07:34 04/18/17 07:34 04/18/17 07:34 04/18/17 07:34 04/18/17 07:34 - Medications Medications: Current Medications Acetaminophen (Tylenol 325mg Tab) 650 mg PO Q4 PRN PRN Reason: Pain, Mild (1-3) Acetaminophen (Tylenol 325mg Tab) 650 mg PO Q4 PRN PRN Reason: Fever >100.4 F Last Admin: 04/18/17 04:57 Dose: 650 mg Aripiprazole (Abilify) 10 mg PO HS [facility] Last Admin: 04/17/17 21:42 Dose: 10 mg Bacitracin (Bacitracin Oint) 1 applic TOP BID [facility] Last Admin: 04/17/17 17:31 Dose: 1 applic Clonazepam (Klonopin) 0.5 mg PO TID PRN PRN Reason: Anxiety Gabapentin (Neurontin) 300 mg PO BID [facility] Last Admin: 04/17/17 17:32 Dose: 300 mg Heparin Sodium (Porcine) (Heparin) 5,000 units SC Q8 [facility] PRN Reason: Protocol Last Admin: 04/18/17 00:19 Dose: 5,000 units Home Med (Patient's Own Medication) 1 unit PO DAILY [facility] Last Admin: 04/17/17 08:54 Dose: 1 unit Hydromorphone HCl (Dilaudid) 1 mg IVP Q3 PRN PRN Reason: Pain, severe (8-10) Last Admin: 04/18/17 05:05 Dose: 1 mg Ampicillin Sodium/Sulbactam (Sodium 1.5 gm/ Sodium Chloride) 100 mls @ 100 mls/ hr IVPB Q6 [facility] Last Admin: 04/18/17 04:54 Dose: 100 mls/hr Lactated Ringer's (Lactated Ringer's) 1,000 mls @ 100 mls/hr IV .Q10H [facility] Last Admin: 04/17/17 18:17 Dose: Not Given Ketorolac Tromethamine (Toradol) 30 mg IVP Q6 PRN PRN Reason: Pain, severe (8-10) Last Admin: 04/13/17 01:08 Dose: 30 mg Ketorolac Tromethamine (Toradol) 15 mg IVP Q6 PRN PRN Reason: Pain, moderate (4-7) Mirtazapine (Remeron) 30 mg PO HS [facility] Last Admin: 04/17/17 21:42 Dose: 30 mg Spironolactone (Aldactone) 50 mg PO BID [facility] Last Admin: 04/17/17 17:31 Dose: 50 mg - Labs Labs: 04/17/17 08:20 04/17/17 08:20 PT 11.2 Seconds (9.8-13.1) 04/12/17 23:54 INR 1.1 (0.9-1.2) 04/12/17 23:54 - Constitutional Appears: No Acute Distress - Head Exam Head Exam: ATRAUMATIC, NORMAL INSPECTION, NORMOCEPHALIC - Eye Exam Eye Exam: EOMI, Normal appearance, PERRL Pupil Exam: NORMAL ACCOMODATION, PERRL - ENT Exam ENT Exam: Mucous Membranes Moist, Normal Exam - Neck Exam Neck Exam: Full ROM, Normal Inspection. absent: Lymphadenopathy - Exam Exam: NORMAL INSPECTION - Extremities Exam Extremities Exam: Full ROM, Normal Capillary Refill, Normal Inspection. absent : Joint Swelling, Pedal Edema - Back Exam Back Exam: Full ROM, tenderness. absent: NORMAL INSPECTION Additional comments: Vac in place. No leak No vac output. SARAH in place 300cc /24hrs - Neurological Exam Neurological Exam: Alert, Awake, CN II-XII Intact, Normal Gait, Oriented x3 - Psychiatric Exam Psychiatric exam: Normal Affect, Normal Mood - Skin Skin Exam: Dry, Intact, Normal Color, Warm Assessment and Plan - Assessment and Plan (Free Text) Assessment: POD 2 s/p staged debridement and closure of flap. hgb 9-> 7.4 MOnitor vitals Transfuse 2 PRBC Monitor labs Reg diet Pain control Ok to DC tomorrow with home wound vac and drains with cipro BID [id number] , if no fever and hgb normalize. F/u with Dr. Kyle in 1 week
[2017-04-18 09:21] LABS: BASO % 0.5 % (0.0-2.0); EOS # 0.1 K/uL (0.0-0.7); EOS % 0.8 % (0.0-4.0); HEMATOCRIT 21.1 % (34.0-47.0); LYMPH # 2.8 K/uL (1.0-4.3); LYMPH % 27.9 % (20.0-40.0); MEAN CELL VOLUME 90.7 fl (81.0-99.0); MEAN CORPUSCULAR HEMOGLOBIN 31.7 pg (27.0-31.0); MEAN PLATELET VOLUME 8.3 fl (7.2-11.7); MONO # 1.2 K/uL (0.0-0.8); MONO % 11.9 % (0.0-10.0); NEUT # 5.8 K/uL (1.8-7.0); NEUT % 58.9 % (50.0-75.0); RED CELL DISTRIBUTION WIDTH 15.7 % (11.5-14.5); WHITE BLOOD COUNT 9.8 K/uL (4.8-10.8)
[2017-04-18 09:48] LABS: ALB/GLOB RATIO 0.9 (1.0-2.1); ALKALINE PHOSPHATASE 34 U/L (38-126); ALT/SGPT 36 U/L (9-52); AST/SGOT 27 U/L (14-36); BILIRUBIN,TOTAL 0.1 mg/dl (0.2-1.3); CALCIUM 7.5 mg/dL (8.4-10.2); CARBON DIOXIDE 28 mmol/L (22-30); CHLORIDE 107 mmol/L (98-107); GFR AFRICAN-AMERICAN > 60; GLUCOSE,RANDOM 101 mg/dL (65-105); POTASSIUM 3.5 MMOL/L (3.6-5.0); SODIUM 139 mmol/l (132-148); TOTAL PROTEIN 4.4 G/DL (6.3-8.2)
[2017-04-18] MEDS: Bacitracin OINT 15GM TOP SCH (09:52)
[2017-04-18] MEDS: VALTREX 500 MG PO SCH (09:52)
[2017-04-18 09:57] LABS: BLOOD UREA NITROGEN 2 mg/dl (7-17)
[2017-04-18] MEDS ORDERED: Potassium Chloride 20 mEq ER Tab PO ONE (10:10)
--- NOTE | 2017-04-18 11:31 | RAD ---
PROCEDURE: CHEST RADIOGRAPH, 1 VIEW HISTORY: post op fever COMPARISON: None available. FINDINGS: LUNGS: Poor inspiration with low lung volumes, crowded bronchovascular markings and mild bibasilar atelectasis. Developing lower lobe infiltrates could be excluded followup radiographs. PLEURA: No pneumothorax or pleural fluid seen. CARDIOVASCULAR: Heart size is upper limits of normal/ borderline enlarged though this is likely in part due to poor inspiration OSSEOUS STRUCTURES: No significant abnormalities. VISUALIZED UPPER ABDOMEN: Normal. OTHER FINDINGS: None. IMPRESSION: Poor inspiration with low lung volumes, crowded bronchovascular markings and mild bibasilar atelectasis. Developing lower lobe infiltrates could be excluded followup radiographs.
--- NOTE | 2017-04-18 14:51 | CP.PCM.PN ---
Subjective - Date & Time of Evaluation Date of Evaluation: 04/18/17 Time of Evaluation: 14:00 - Subjective Subjective: Pt seen and examined. Lying on her chest and abdomen with tolerable pain on her buttocks. 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 Objective - Vital Signs/Intake and Output Vital Signs (last 24 hours): Temp Pulse Resp BP Pulse Ox 99.3 F 68 20 99/71 L 97 04/18/17 13:13 04/18/17 13:13 04/18/17 13:13 04/18/17 13:13 04/18/17 13:13 - Medications Medications: Current Medications Acetaminophen (Tylenol 325mg Tab) 650 mg PO Q4 PRN PRN Reason: Pain, Mild (1-3) Acetaminophen (Tylenol 325mg Tab) 650 mg PO Q4 PRN PRN Reason: Fever >100.4 F Last Admin: 04/18/17 04:57 Dose: 650 mg Aripiprazole (Abilify) 10 mg PO HS [facility] Last Admin: 04/17/17 21:42 Dose: 10 mg Bacitracin (Bacitracin Oint) 1 applic TOP BID [facility] Last Admin: 04/18/17 09:52 Dose: 1 applic Docusate Sodium (Colace) 100 mg PO DAILY [facility] Famotidine (Pepcid) 20 mg PO BID [facility] Gabapentin (Neurontin) 300 mg PO BID [facility] Last Admin: 04/18/17 09:52 Dose: 300 mg Heparin Sodium (Porcine) (Heparin) 5,000 units SC Q8 [facility] PRN Reason: Protocol Last Admin: 04/18/17 09:54 Dose: 5,000 units Home Med (Patient's Own Medication) 1 unit PO DAILY [facility] Last Admin: 04/18/17 09:52 Dose: 1 unit Hydromorphone HCl (Dilaudid) 1 mg IVP Q3 PRN PRN Reason: Pain, severe (8-10) Last Admin: 04/18/17 09:55 Dose: 1 mg Ampicillin Sodium/Sulbactam (Sodium 1.5 gm/ Sodium Chloride) 100 mls @ 100 mls/ hr IVPB Q6 [facility] Last Admin: 04/18/17 09:53 Dose: 100 mls/hr Lactated Ringer's (Lactated Ringer's) 1,000 mls @ 100 mls/hr IV .Q10H [facility] Last Admin: 04/17/17 18:17 Dose: Not Given Ketorolac Tromethamine (Toradol) 30 mg IVP Q6 PRN PRN Reason: Pain, severe (8-10) Last Admin: 04/13/17 01:08 Dose: 30 mg Ketorolac Tromethamine (Toradol) 15 mg IVP Q6 PRN PRN Reason: Pain, moderate (4-7) Mirtazapine (Remeron) 30 mg PO HS [facility] Last Admin: 04/17/17 21:42 Dose: 30 mg Spironolactone (Aldactone) 50 mg PO BID [facility] Last Admin: 04/18/17 09:52 Dose: 50 mg - Labs Labs: 04/18/17 08:30 04/18/17 08:30 PT 11.2 Seconds (9.8-13.1) 04/12/17 23:54 INR 1.1 (0.9-1.2) 04/12/17 23:54 - Constitutional Appears: No Acute Distress - Head Exam Head Exam: ATRAUMATIC - Eye Exam Eye Exam: absent: Scleral icterus - ENT Exam ENT Exam: Mucous Membranes Moist - Neck Exam Neck Exam: absent: Meningismus - Respiratory Exam Respiratory Exam: absent: Rhonchi, Wheezes, Respiratory Distress - Cardiovascular Exam Cardiovascular Exam: REGULAR RHYTHM, +S1, +S2 - GI/Abdominal Exam GI & Abdominal Exam: Soft. absent: Tenderness - Rectal Exam Rectal Exam: Deferred - Back Exam Back Exam: absent: NORMAL INSPECTION (wound vac and SARAH drain in place and actively draining bloody materials) - Neurological Exam Neurological Exam: Alert, Oriented x3 - Psychiatric Exam Psychiatric exam: Normal Affect - Skin Skin Exam: Dry, Intact Assessment and Plan - Assessment and Plan (Free Text) Assessment: 36 yo female with history of seizure, anxiety/depression had Fat injected into her buttocks and a year ago an unknown substance was likewise injected in her buttocks for augmentation. She came into the ER complaining of worsening pain on erythematous lumpy masses on both buttocks (left>right) radiating to the lower back. 1. Cellulitis with soft tissue Necrosis at both Buttocks surgical debridement stage 2 and closure with flap, POD # 2 had fever earlier this morning WBC: 9.8 today wound vacs and SARAH drain in place and draining bloody material continue IV Unasyn continue pain management for discharge in am if no recurrence of fever 2. Lower back pain MRI of lower back and pelvis : no compression fractures, no disc herniation, scattered subcutaneous granulomata extending to the level of L3 likely migration from numerous granulomas within the soft tissues of the buttocks 3. Anxiety/Depression continue Ghada Carrillo Klonopin PRN Dr Montemayor on psyche consult 4. Blood Loss Anemia Hgb: 7.4 for blood transfusion with 2 units of PRBC repeat CBC in am 5. DVT prophylaxis continue Heparin 5000 units SC q 8hrs
[2017-04-18] MEDS: Lactated Ringer's 1,000 ML IV SCH (23:54)
[2017-04-19] MEDS: Lactated Ringer's 1,000 ML IV SCH ×2 (04:54→22:18)
[2017-04-19] MEDS: Ampicillin/Sulbactam 1.5 GM in Sodium Chloride 0.9% 100 ML IVPB SCH ×4 (04:54→21:02)
--- NOTE | 2017-04-19 07:20 | CP.PCM.PN ---
<James Anders - Last Filed: 04/19/17 07:40> Subjective - Date & Time of Evaluation Date of Evaluation: 04/19/17 Time of Evaluation: 07:00 - Subjective Subjective: General Surgery Progress Note for Dr. Kyle Patient seen and examined at bedside this AM. She is s/p staged debridement and flap closure POD #3. She is resting in bed comfortably. Pain controlled with medication. Overnight, patient had transfusion reaction (fever of 102.6). She received only 1 unit of PRBC before fever developed. She received benadryl and tylenol. She is ambulating with assistance, tolerating diet and voiding without difficulty. Denies cp, sob, palpitations, n/v/d, weakness, numbness/ tingling. Objective - Vital Signs/Intake and Output Vital Signs (last 24 hours): Temp Pulse Resp BP Pulse Ox 98 F 104 H 18 101/69 100 04/18/17 23:56 04/18/17 23:56 04/18/17 23:56 04/18/17 23:56 04/18/17 23:56 - Medications Medications: Current Medications Acetaminophen (Tylenol 325mg Tab) 975 mg PO Q6 PRN PRN Reason: Fever >100.4 F Last Admin: 04/18/17 18:08 Dose: 975 mg Aripiprazole (Abilify) 10 mg PO HS [facility] Last Admin: 04/18/17 21:45 Dose: 10 mg Bacitracin (Bacitracin Oint) 1 applic TOP BID [facility] Last Admin: 04/18/17 09:52 Dose: 1 applic Docusate Sodium (Colace) 100 mg PO DAILY [facility] Last Admin: 04/18/17 16:49 Dose: Not Given Famotidine (Pepcid) 20 mg PO BID [facility] Gabapentin (Neurontin) 300 mg PO BID [facility] Last Admin: 04/18/17 17:21 Dose: 300 mg Heparin Sodium (Porcine) (Heparin) 5,000 units SC Q8 [facility] PRN Reason: Protocol Last Admin: 04/19/17 01:14 Dose: 5,000 units Home Med (Patient's Own Medication) 1 unit PO DAILY [facility] Last Admin: 04/18/17 09:52 Dose: 1 unit Hydromorphone HCl (Dilaudid) 1 mg IVP Q3 PRN PRN Reason: Pain, severe (8-10) Last Admin: 04/19/17 05:00 Dose: 1 mg Ampicillin Sodium/Sulbactam (Sodium 1.5 gm/ Sodium Chloride) 100 mls @ 100 mls/ hr IVPB Q6 [facility] Last Admin: 04/19/17 04:54 Dose: 100 mls/hr Lactated Ringer's (Lactated Ringer's) 1,000 mls @ 100 mls/hr IV .Q10H [facility] Last Admin: 04/19/17 04:54 Dose: 100 mls/hr Ketorolac Tromethamine (Toradol) 30 mg IVP Q6 PRN PRN Reason: Pain, severe (8-10) Last Admin: 04/13/17 01:08 Dose: 30 mg Ketorolac Tromethamine (Toradol) 15 mg IVP Q6 PRN PRN Reason: Pain, moderate (4-7) Mirtazapine (Remeron) 30 mg PO HS [facility] Last Admin: 04/18/17 21:45 Dose: 30 mg Spironolactone (Aldactone) 50 mg PO BID [facility] Last Admin: 04/18/17 17:21 Dose: 50 mg - Labs Labs: 04/18/17 08:30 04/18/17 08:30 PT 11.2 Seconds (9.8-13.1) 04/12/17 23:54 INR 1.1 (0.9-1.2) 04/12/17 23:54 - Constitutional Appears: No Acute Distress - Head Exam Head Exam: ATRAUMATIC, NORMOCEPHALIC - Eye Exam Eye Exam: Normal appearance - ENT Exam ENT Exam: Mucous Membranes Moist - Neck Exam Neck Exam: Full ROM - Respiratory Exam Respiratory Exam: NORMAL BREATHING PATTERN - Cardiovascular Exam Cardiovascular Exam: REGULAR RHYTHM - GI/Abdominal Exam GI & Abdominal Exam: Soft. absent: Distended, Tenderness - Extremities Exam Extremities Exam: Normal Capillary Refill. absent: Calf Tenderness - Back Exam Back Exam: tenderness (bilateral gluteal region at incision site). absent: CVA tenderness (L), CVA tenderness (R) Additional comments: Wound Vac in place without leak. No output from wound vac overnight SARAH drains in place, producing serosanguinous output - 1.) 15 cc 2.) 20 cc 3.) 42 cc 4.) 25 5.) 25 - Neurological Exam Neurological Exam: Alert, Awake, Oriented x3 - Psychiatric Exam Psychiatric exam: Normal Affect, Normal Mood - Skin Skin Exam: Dry, Normal Color, Warm Assessment and Plan - Assessment and Plan (Free Text) Plan: 36 F s/p staged debridement and closure of flap POD #3 who required multiple transfusions Monitor H/H and vitals s/p 1 unit PRBC due to transfusion reaction (2 units were ordered, she has received 6 units total this admission) Regular diet Pain control DC with home wound vac, drains and ciprofloxacin for 14 days when medically stable f/u with Dr. Kyle 1 week after DC Will DW Dr. Saroj Anders PGY1 <Emiliana Ferro - Last Filed: 04/19/17 11:26> Objective - Vital Signs/Intake and Output Vital Signs (last 24 hours): Temp Pulse Resp BP Pulse Ox 99.8 F H 116 H 20 106/73 99 04/19/17 10:00 04/19/17 08:04 04/19/17 08:04 04/19/17 08:04 04/19/17 08:04 - Medications Medications: Current Medications Acetaminophen (Tylenol 325mg Tab) 975 mg PO Q6 PRN PRN Reason: Fever >100.4 F Last Admin: 04/18/17 18:08 Dose: 975 mg Aripiprazole (Abilify) 10 mg PO HS [facility] Last Admin: 04/18/17 21:45 Dose: 10 mg Bacitracin (Bacitracin Oint) 1 applic TOP BID [facility] Last Admin: 04/19/17 09:05 Dose: 1 applic Ciprofloxacin (Cipro) 500 mg PO Q12 [facility] Docusate Sodium (Colace) 100 mg PO DAILY [facility] Last Admin: 04/19/17 09:05 Dose: 100 mg Famotidine (Pepcid) 20 mg PO BID [facility] Last Admin: 04/19/17 09:08 Dose: 20 mg Gabapentin (Neurontin) 300 mg PO BID [facility] Last Admin: 04/19/17 09:07 Dose: 300 mg Heparin Sodium (Porcine) (Heparin) 5,000 units SC Q8 [facility] PRN Reason: Protocol Last Admin: 04/19/17 09:05 Dose: 5,000 units Home Med (Patient's Own Medication) 1 unit PO DAILY [facility] Last Admin: 04/19/17 09:07 Dose: 1 unit Hydromorphone HCl (Dilaudid) 1 mg IVP Q3 PRN PRN Reason: Pain, severe (8-10) Last Admin: 04/19/17 09:01 Dose: 1 mg Ampicillin Sodium/Sulbactam (Sodium 1.5 gm/ Sodium Chloride) 100 mls @ 100 mls/ hr IVPB Q6 [facility] Last Admin: 04/19/17 09:08 Dose: 100 mls/hr Lactated Ringer's (Lactated Ringer's) 1,000 mls @ 100 mls/hr IV .Q10H [facility] Last Admin: 04/19/17 04:54 Dose: 100 mls/hr Ketorolac Tromethamine (Toradol) 30 mg IVP Q6 PRN PRN Reason: Pain, severe (8-10) Last Admin: 04/13/17 01:08 Dose: 30 mg Ketorolac Tromethamine (Toradol) 15 mg IVP Q6 PRN PRN Reason: Pain, moderate (4-7) Mirtazapine (Remeron) 30 mg PO HS [facility] Last Admin: 04/18/17 21:45 Dose: 30 mg Spironolactone (Aldactone) 50 mg PO BID [facility] Last Admin: 04/19/17 09:04 Dose: 50 mg - Labs Labs: 04/19/17 06:30 04/19/17 06:30 PT 11.2 Seconds (9.8-13.1) 04/12/17 23:54 INR 1.1 (0.9-1.2) 04/12/17 23:54 Assessment and Plan - Assessment and Plan (Free Text) Assessment: Pt had recurrent fever. CXR shows atelectasis/ developing infiltration. monitor overnight. f/u AM labs
[2017-04-19 07:23] LABS: HEMATOCRIT 25.9 % (34.0-47.0); MEAN CELL VOLUME 92.4 fl (81.0-99.0); MEAN CORPUSCULAR HEMOGLOBIN 31.1 pg (27.0-31.0); MEAN CORPUSCULAR HGB CONC 33.7 g/dL (33.0-37.0); RED CELL DISTRIBUTION WIDTH 15.7 % (11.5-14.5); WHITE BLOOD COUNT 10.6 K/uL (4.8-10.8)
[2017-04-19 07:42] LABS: BLOOD UREA NITROGEN 4 mg/dl (7-17); CALCIUM 7.9 mg/dL (8.4-10.2); CARBON DIOXIDE 31 mmol/L (22-30); CHLORIDE 106 mmol/L (98-107); GFR AFRICAN-AMERICAN > 60; GLUCOSE,RANDOM 88 mg/dL (65-105); SODIUM 140 mmol/l (132-148)
[2017-04-19 08:19] LABS: RBC URINE 2 /hpf (0-3); URINE BACTERIA OCC (<OCC); URINE BILIRUBIN NEGATIVE (NEGATIVE); URINE BLOOD NEGATIVE (NEGATIVE); URINE COLOR STRAW (YELLOW); URINE GLUCOSE (UA) NEG (Normal); URINE KETONE NEGATIVE (NEGATIVE); URINE LEUKOCYTE ESTERASE NEG Leu/uL (Negative); URINE PROTEIN NEGATIVE (NEGATIVE); URINE UROBILINOGEN 0.2-1.0 mg/dL (0.2-1.0); WBC URINE 1 /hpf (0-5)
[2017-04-19] MEDS: Bacitracin OINT 15GM TOP SCH ×2 (09:05→16:26)
[2017-04-19] MEDS: VALTREX 500 MG PO SCH (09:07)
--- NOTE | 2017-04-19 11:37 | CP.PCM.PN ---
Subjective - Date & Time of Evaluation Date of Evaluation: 04/19/17 Time of Evaluation: 12:00 - Subjective Subjective: Patient seen and examined bedside. Feeling better. With Tmac 102.6 last 24 hours during transfusion. Currently T 99.8 , WBC 10 K Denies any cough , SOB, dysuria No acute issues overnight wants to go home CXR showed poor Poor inspiration with low lung volumes, crowded bronchovascular markings and mild bibasilar atelectasis. Developing lower lobe infiltrates could be excluded followup radiographs. Wound vac in place with 120 ml output last 2 hours Objective - Vital Signs/Intake and Output Vital Signs (last 24 hours): Temp Pulse Resp BP Pulse Ox 99.8 F H 116 H 20 106/73 99 04/19/17 10:00 04/19/17 08:04 04/19/17 08:04 04/19/17 08:04 04/19/17 08:04 - Medications Medications: Current Medications Acetaminophen (Tylenol 325mg Tab) 975 mg PO Q6 PRN PRN Reason: Fever >100.4 F Last Admin: 04/18/17 18:08 Dose: 975 mg Aripiprazole (Abilify) 10 mg PO HS [facility] Last Admin: 04/18/17 21:45 Dose: 10 mg Bacitracin (Bacitracin Oint) 1 applic TOP BID [facility] Last Admin: 04/19/17 09:05 Dose: 1 applic Ciprofloxacin (Cipro) 500 mg PO Q12 [facility] Docusate Sodium (Colace) 100 mg PO DAILY [facility] Last Admin: 04/19/17 09:05 Dose: 100 mg Famotidine (Pepcid) 20 mg PO BID [facility] Last Admin: 04/19/17 09:08 Dose: 20 mg Gabapentin (Neurontin) 300 mg PO BID [facility] Last Admin: 04/19/17 09:07 Dose: 300 mg Heparin Sodium (Porcine) (Heparin) 5,000 units SC Q8 [facility] PRN Reason: Protocol Last Admin: 04/19/17 09:05 Dose: 5,000 units Home Med (Patient's Own Medication) 1 unit PO DAILY [facility] Last Admin: 04/19/17 09:07 Dose: 1 unit Hydromorphone HCl (Dilaudid) 1 mg IVP Q3 PRN PRN Reason: Pain, severe (8-10) Last Admin: 04/19/17 09:01 Dose: 1 mg Ampicillin Sodium/Sulbactam (Sodium 1.5 gm/ Sodium Chloride) 100 mls @ 100 mls/ hr IVPB Q6 [facility] Last Admin: 04/19/17 09:08 Dose: 100 mls/hr Lactated Ringer's (Lactated Ringer's) 1,000 mls @ 100 mls/hr IV .Q10H [facility] Last Admin: 04/19/17 04:54 Dose: 100 mls/hr Ketorolac Tromethamine (Toradol) 30 mg IVP Q6 PRN PRN Reason: Pain, severe (8-10) Last Admin: 04/13/17 01:08 Dose: 30 mg Ketorolac Tromethamine (Toradol) 15 mg IVP Q6 PRN PRN Reason: Pain, moderate (4-7) Mirtazapine (Remeron) 30 mg PO HS [facility] Last Admin: 04/18/17 21:45 Dose: 30 mg Spironolactone (Aldactone) 50 mg PO BID [facility] Last Admin: 04/19/17 09:04 Dose: 50 mg - Labs Labs: 04/19/17 06:30 04/19/17 06:30 PT 11.2 Seconds (9.8-13.1) 04/12/17 23:54 INR 1.1 (0.9-1.2) 04/12/17 23:54 - Constitutional Appears: Non-toxic, No Acute Distress - Head Exam Head Exam: ATRAUMATIC, NORMAL INSPECTION, NORMOCEPHALIC - Eye Exam Eye Exam: EOMI - Neck Exam Neck Exam: Full ROM, Normal Inspection - Respiratory Exam Respiratory Exam: Clear to Ausculation Bilateral, NORMAL BREATHING PATTERN. absent: Rhonchi, Wheezes - Cardiovascular Exam Cardiovascular Exam: REGULAR RHYTHM, RRR, +S1, +S2. absent: JVD - GI/Abdominal Exam GI & Abdominal Exam: Soft, Normal Bowel Sounds. absent: Distended, Guarding, Tenderness, Rebound - Rectal Exam Rectal Exam: Deferred - Exam Additional comments: bilateral superior gluteal region surgical incisions with wound vac in place SARAH drains in place with sero sanguinous output - Extremities Exam Extremities Exam: Full ROM, Normal Capillary Refill, Normal Inspection. absent : Calf Tenderness, Pedal Edema - Back Exam Back Exam: NORMAL INSPECTION - Neurological Exam Neurological Exam: Alert, Awake, CN II-XII Intact, Oriented x3 - Psychiatric Exam Psychiatric exam: Normal Affect - Skin Skin Exam: Dry, Warm Assessment and Plan - Assessment and Plan (Free Text) Assessment: 36 yo female with history of seizure, anxiety/depression had Fat injected into her buttocks and a year ago an unknown substance was likewise injected in her buttocks for augmentation. She came into the ER complaining of worsening pain on erythematous lumpy masses on both buttocks (left>right) radiating to the lower back.She was admitted with cellulitis and soft tissue necrosis, started on IV antibiotics and plastic surgery consulted . she 8underwent surgical debridment and flap closure with wound vac placement. Post op she developed acute blood loss anemia and was transfused with total 5 unit PRBC with Hgb today 8.7 .At present doing well, pain controlled and wants to go home. With episode of fever Tmax 102.6 last 24 hours 1. Cellulitis with soft tissue Necrosis at both Buttocks s/p surgical debridement stage 2 and closure with flap, POD # 3 wound vacs and SARAH drain in place and draining bloody material With Tmax 102.6 last 24 hours during transfusion , WBC 10.6 continue IV Unasyn. Started Cipro PO continue pain management Plastic surgery following closely 2.Acute Blood Loss Anemia Hgb: 8.7 s/p total 5 unit PRBc transfusion repeat CBC in am 3. Lower back pain MRI of lower back and pelvis : no compression fractures, no disc herniation, scattered subcutaneous granulomata extending to the level of L3 likely migration from numerous granulomas within the soft tissues of the buttocks Continue pain management 4. Anxiety/Depression continue RemGhada guillen Klonopin PRN Dr Montemayor on psyche consult 5. DVT prophylaxis continue Heparin 5000 units SC q 8hrs 6. Fever Possible transfusion reaction Patient had Tmax 102.6 yesterday during transfusion and was treated with Benadryl and Motrin CXR showed possible atelectasis , or new infiltrates.patient is asymptomatic with npo cough or SOB. Continue incentive spirometry and ambulation UA - with no LE , no nitrates ' Continue monitoring
[2017-04-19] MEDS ORDERED: Oxycodone/Acetaminophen 5/325 mg Tab PO PRN (16:20)
--- NOTE | 2017-04-20 00:16 | CON ---
DATE: 04/13/2017 EMERGENCY CONSULTATION HISTORY OF PRESENT ILLNESS: This is a 36-year-old female who presented to the emergency room at [facility] complaining of severe bilateral buttock and back pain, burning and itching as well as fevers and chills, redness and warmth to bilateral buttocks over the past couple of days. The patient has a history of injections to bilateral buttocks with some foreign material many years ago. The patient has had intermittent problems over the past few years and that are now worsening. I was consulted by the medical staff for acute buttock cellulitis and possible soft tissue necrosis as the patient was having incapacitating back and buttock pain. The patient was admitted by the medical service and given IV antibiotics for buttock cellulitis. MRIs were ordered of the lumbar spine and pelvis, which showed significant soft tissue infiltration, bilateral gluteus subcutaneous tissue as well as up to the skin consistent with cellulitis and some involvement of the gluteus dayami muscles. On the lumbar spine MRI, there was cranial migration up to L3. I thus came in to evaluate and treat the patient, and on history, the patient has a history of psychiatric issues. She is on multiple antipsychotic medications as well as spironolactone, which she says it is for acne. Patient complains of incapacitating buttock and back pain as well as fevers and chills, legs falling asleep, burning and itching of her buttocks. PHYSICAL EXAMINATION: Bilateral buttocks inferior half was red and warm. There was hyperpigmentation, tenderness, multiple nodules and masses consistent with soft tissue necrosis. There was minimal inguinal lymphadenopathy. There was a tender fluctuant mass up until lumbar spine up to at L3 and L4, which was tender. I reviewed the MRI and I explained to the patient based on our exam and the MRI, this likely is significant soft tissue necrosis of bilateral buttocks and the back. There is pressure of the paraspinal muscles giving her back pain which she presented to the emergency room with and as well as on the sciatic nerves which is giving her paresthesias of her legs causing them to fall asleep which is what she presented with and likely the inciting cause of her cellulitis. I recommended emergent operation after appropriate medical and psychiatric clearance for staged debridement and eventual closure. Laura Kyle MD [facility] # [id number]
--- NOTE | 2017-04-20 00:20 | OP ---
PROCEDURE DATE: 04/16/2017 SURGEON: Laura Kyle MD. COMPUTED TOMOGRAPHY TECHNICIAN SURGEON: Bernardo Hills MD ANESTHESIOLOGIST: MD Danial ANESTHESIA: General endotracheal tube anesthesia. PREOPERATIVE DIAGNOSES: As follows. 1. Open bilateral buttock wounds and back wounds status post radical debridement and resection of necrotic soft tissue. 2. Bilateral buttock, hip and back soft tissue necrosis secondary to foreign bodies. 3. Cellulitis of the bilateral buttocks. POSTOPERATIVE DIAGNOSES: 1. Open bilateral buttock wounds and back wounds status post radical debridement and resection of necrotic soft tissue. 2. Bilateral buttock, hip and back soft tissue necrosis secondary to foreign bodies. 3. Cellulitis of the bilateral buttocks. PROCEDURE PERFORMED: As follows; 1. Stage partial removal of foreign bodies from bilateral buttocks and hips. 2. Radical resection of 253 cm2 of left hip necrotic soft tissue mass. 3. Radical resection of the 294 cm2 of right buttock and hip necrotic soft tissue mass. 4. Lumbar spine fasciocutaneous advancement flap. 5. Right gluteal fasciocutaneous advancement flap. 6. Left gluteal fasciocutaneous advancement flap. 7. Complex closure of 50 cm open back wound. 8. Partial lavage irrigation of open buttocks wounds. 9. Prevena incisional wound VAC placement.. INDICATION OF THE PROCEDURE: As follows. This is a 36-year-old who I previously operated on 2 days prior. In the interim, the patient has been treated with a wound VAC therapy on the floor. Vitals remains stable. Patient then had IV antibiotics for cellulitis which is improving. The plan is to take the patient back today for planned second stage second stage to look for further debridement of necrotic soft tissue from bilateral buttocks and hips as well as fasciocutaneous advancement flap closure over drains. Risks and benefits of the operation were fully discussed with the patient and the previous operation reiterated in the holding area today. The patient agreed to proceed and signed informed consent and all questions were answered. DESCRIPTION OF THE PROCEDURE: As follows. The patient was taken to the operating room in the supine position, placed under general endotracheal tube anesthesia. Perioperative antibiotics were confirmed. SCDs were placed on bilateral lower extremities. She was flipped into prone position. After appropriate positioning and padding of her arms and the rest of the body, we removed the wound VAC that was placed prior. We prepped and draped the entire area in the usual clean and sterile manner. We used the blue towel and Ioban dressing over the anus to block any bowel flow. We started the operation by exploring for any bleeding. There was nothing significant. We started the operation by first using Iron clamps and we measured proposed skin excision from bilateral buttocks flaps. We marked out proposed line of incision, with a #10 scalpel. We cut out the skin and electrocautery, dissect down through the skin and soft tissue, with the aid of a lighted retractor, we had to further elevate our flaps inferiorly on bilateral buttocks, we did this all the way down to the inferior gluteal crease. We then elevated the plane of dissection just above the gluteus dayami muscles. We then debrided more foreign body and necrotic soft tissue from bilateral buttocks and hips. There was 294 cm2 of right hip and buttock necrotic soft tissue mass and 253 cm2 of left hip necrotic soft tissue mass that was excised with a combination of sharp dissection as well as electrocautery. We also went through the muscle and removed anymore foreign material and soft tissue necrosis that we could find. We made sure that hemostasis was obtained with electrocautery as well as 2-0 Vicryl sutures. After doing this, we were pleased with the capillary refill to the skin flaps. We then incised the deep fascia and we advanced gluteal flaps superiorly in terms of the lumbar flap that we previously elevated, we had to elevate it some more, we cut out some skin. We used Iron clamps to tack the skin. Prior to doing this, we irrigated 3 liters of pulsatile lavage antibiotic irrigation. We then tailor-tacked the skin. We encountered some dog ears nd removed these with a #10 scalpel. I left 5 drains, 2 #19 Burkinan Mitesh drains in a dependent position and 3 SARAH drains in a superior buttocks, and underneath the back. These were taken out through separate anterior and lateral hip incisions secured in place with 2-0 silk sutures. We then performed advancement flap closure and a progressive tension suture technique with 0 Vicryl sutures. There was a 15 cm long incision. Radha's fascia was aligned and approximated with 0 Vicryl sutures in interrupted fashion. Deep dermis aligned and approximated in interrupted fashion and 2-0 Vicryl suture. Subcuticular layer was closed with a running 3-0 Monocryl suture. After doing this, there was a good capillary refill to the skin flaps. Nice contour was achieved, the Prevena incisional VAC was placed, set it to the hospital machine. Drains were secured. Patient was flipped over, extubated and transferred to recovery room in stable condition. FINDINGS: As above. SPECIMENS: 1. Three left buttock and hip necrotic soft tissue. 2. Right buttock and hip necrotic soft tissue. 3. Skin from the back. ESTIMATED BLOOD LOSS: About 400 mL. Patient got 3 units of packed red blood cells. DRAINS: 5 19-Burkinan Mitesh x2 and 10 mm SARAH x3 buttocks. COMPLICATIONS: None. CONDITION: Stable. Laura Kyle MD
--- NOTE | 2017-04-20 00:26 | OP ---
PROCEDURE DATE: 04/14/2017 PREOPERATIVE DIAGNOSES: 1. Bilateral buttock and hip and back soft tissue necrosis secondary to foreign body reaction. 2. Cellulitis of bilateral buttocks. POSTOPERATIVE DIAGNOSES: 1. Bilateral buttock and hip and back soft tissue necrosis secondary to foreign body reaction. 2. Cellulitis of bilateral buttocks. OPERATIONS PERFORMED: As follows; 1. Staged partial removal of foreign material from bilateral buttocks, hips, and back. 2. Elevation and delay of right inferiorly based gluteal fasciocutaneous flap. 3. Elevation and delay left inferiorly based gluteal fasciocutaneous flap. 4. Elevation and delay of lumbar spine fasciocutaneous flap. 5. Radical resection of 78 cm2 of left back necrotic soft tissue mass. 6. Radical resection of 260 cm2 of left buttock necrotic soft tissue mass. 7. Radical resection of 66 cm2 of right back necrotic soft tissue mass. 8. Radical resection of 308 cm2 of right buttock necrotic soft tissue mass. 9. Debridement of bilateral gluteus dayami necrotic muscles. 10. Pulsatile lavage irrigation of bilateral buttocks. 11. Wound VAC placement to bilateral buttocks. PRIMARY SURGEON: Dr. Laura Kyle MD SECONDARY SURGEON: Bernardo Hills MD ANESTHESIOLOGIST: Lg Masterson MD ANESTHESIA: General endotracheal tube anesthesia. INDICATIONS FOR PROCEDURE: As follows: This is a 36-year-old female, who I previously dictated a consultation on, as she was admitted to hospital complaining of significant and severe incapacitating bilateral buttock and back pain as well as cellulitis. The patient has been evaluated and cleared by the medical team and being treated with IV antibiotics for her cellulitis. MRIs of her lumbar spine and pelvis showed significant infiltration of the subcutaneous tissues of the bilateral buttocks involving some of the gluteus dayami muscles with cranial migration to L3 of the lumbar spine. This is likely the inciting cause to the patient's recurrent infection and cellulitis as well as the cause of the paresthesia and acute numbness that she presented to the emergency room with from pressure on the paraspinal muscles as well as the sciatic nerves. Blood work to rule out HA syndrome was also pending. A psychiatrist was consulted on the patient because of a psychiatric history, being on multiple psychiatric medications, as well as for her anxiety. The psychiatrist was also asked to make sure the patient understood and exhibited capacity for the following. This purposed operation would be a staged partial removal of foreign material that was injected into her buttocks and hips. There was no guarantee she would get better. There is possibility she would get worse and that the foreign material may migrate and I certainly would not be going to be able to take all that out as it would be impossible to do, and there is a strong likelihood that some of the material has already migrated from her buttocks to her back and other parts of the body. I also explained to the patient that this has a potential for being cosmetically disfiguring and they can be a very poor cosmetic outcome. The benefits of the purposed operation would be to debulk and remove as much of the foreign body burden as possible that will take the pressure of the nerves of her legs and her spine and this will relieve her pain and allow her immune system reset, so she is not prone to recurrent infections and opportunistic infections and to be prevent further migration on the material to other parts of the body. In the past day and half, the patient has been on IV antibiotics for cellulitis. She is also getting pain medicine for her incapacitating back and buttock pain. I told the patient this would be a purposed 2-staged procedure. The goal for today would be raised and delayed fasciocutaneous flaps of the back and bilateral buttocks, so I can see the viability of skin flaps since there was incredible amount of debulking that was going to occur. I said that since a large amount of debulking was going to occur, these flaps may become necrotic at the distal edges, that is my reasoning in elevating and delaying the flaps and treating with the wound VAC in the interim and also having the benefit of reevaluating the flaps to see if they need to be debrided and the VAC would also suck out bacteria and the foreign material. I explained to the patient that it is unknown how much of the foreign material I would take out, but I told her I would take out whatever is visible and palpable in a safe manner. Again, it was reiterated that this could be cosmetically disfiguring. She may have poor scarring. Her wound may breakdown. She may need multiple reconstructive surgeries over the next many years and buttocks they come out significantly deformed. I told her conversely if she did nothing she is at high risk for having her skin and eventually her whole buttocks necrosed and this would require much more radical surgery. The risks and benefits of the purposed operation including were not limited to bleeding, hematoma, seroma, infection, DVT, PE, OR, , necrosis of the skin flaps, open wounds, delayed healing, hypertrophic scarring, keloid scarring, skin necrosis, damage of sensory and motor nerves, difficulty ambulating, chronic pain and embolization of the foreign material to other parts of the body were discussed with the patient and all questions were answered. DESCRIPTION OF PROCEDURE: As follows: The patient was taken to the operating in the preoperative holding area. I marked out low transverse back incision correlating this to areas of tenderness and discoloration and hyperpigmentation and correlating this with the MRI findings and to the tenderness of her back where there is a fluctuant mass. The patient was taken to the operating room, SCDs were placed on bilateral lower extremities prior to the induction of general anesthesia in the supine position. She was then intubated and placed in the prone position. After appropriate positioning and padding on the operating room table, buttocks and back were prepped and draped in the usual clean and sterile manner. Anus was protected with a blue towel and Ioban dressing. Using a #10 scalpel, we dissected down to the skin and used electrocautery and dissected all the way down to the deep muscle fascia of the gluteus dayami muscles and paraspinal muscles. We then elevated three fasciocutaneous flaps. We elevated a superiorly based lumbar facia cutaneous flap for about 10 cm superiorly correlating to all areas that were tender in the preop exam as well as the MRI in areas of soft tissue hardening and necrosis. We then elevated left and right inferiorly based gluteal fasciocutaneous flaps as far as down as we could with the instruments that we had and we were able to dissect down about 15 cm. We then entered the plane just deep to Radha's fascia dissected the skin flaps off of the necrotic soft tissue and with a combination of sharp dissection and electrocautery, we able to debulk a large amount of fat necrosis, scar tissue, granulomas and we did this from bilateral buttocks as well as the back. There was 78 cm2 of left back necrotic soft tissue mass, 260 cm2 of left buttock necrotic tissue mass, 66 cm2 of right back necrotic soft tissue, and 308 cm2 of right buttock necrotic soft tissue mass that we debrided this was sent to the lab. After doing this, we noticed there was some necrosis and involvement of bilateral gluteal dayami muscles and these were debrided sharply. We then reyes picked the muscle, popped any granulomas that we could feel. We then popped any superficial granulomas that we saw just below the dermis. We then use 2 L of antibiotic pulsatile lavage irrigation and then obtained hemostasis with electrocautery and 3-0 Vicryl sutures. After doing this, we were quite pleased with the initial debulking. We could not go any further inferiorly, and after delaying the flaps, we had to evaluate the viability of the skin, so after obtaining hemostasis, we placed wound VACs, sponges *------* flaps and set the VAC to 125 mmHg attached to VAC machine. We then flipped the patient over, she was extubated and transferred to recovery room in stable condition. FINDINGS: As above. SPECIMENS: 1. Left buttock necrotic soft tissue mass. 2. Left back necrotic soft tissue mass. 3. Right buttock necrotic soft tissue mass. 4. Right back necrotic soft tissue mass. ESTIMATED BLOOD LOSS: 500 mL. BLOOD PRODUCTS: The patient got 2 units of packed red blood cells. COMPLICATIONS: None. CONDITION: Stable. DRAINS: Wound VAC sponges to bilateral buttocks. Laura Kyle MD
[2017-04-20 01:28] VITALS: RESP 20
[2017-04-20] MEDS: Ampicillin/Sulbactam 1.5 GM in Sodium Chloride 0.9% 100 ML IVPB SCH ×2 (04:58→10:06)
[2017-04-20 07:32] LABS: BASO % 0.2 % (0.0-2.0); EOS # 0.2 K/uL (0.0-0.7); EOS % 1.7 % (0.0-4.0); HEMATOCRIT 25.9 % (34.0-47.0); LYMPH % 21.9 % (20.0-40.0); MEAN CELL VOLUME 91.4 fl (81.0-99.0); MEAN CORPUSCULAR HEMOGLOBIN 32.4 pg (27.0-31.0); MEAN CORPUSCULAR HGB CONC 35.4 g/dL (33.0-37.0); MEAN PLATELET VOLUME 7.7 fl (7.2-11.7); MONO # 1.1 K/uL (0.0-0.8); MONO % 11.7 % (0.0-10.0); NEUT # 5.9 K/uL (1.8-7.0); NEUT % 64.5 % (50.0-75.0); RED CELL DISTRIBUTION WIDTH 15.4 % (11.5-14.5); WHITE BLOOD COUNT 9.2 K/uL (4.8-10.8)
[2017-04-20 07:44] LABS: ALB/GLOB RATIO 0.9 (1.0-2.1); ALKALINE PHOSPHATASE 48 U/L (38-126); ALT/SGPT 27 U/L (9-52); AST/SGOT 22 U/L (14-36); BILIRUBIN,TOTAL 0.2 mg/dl (0.2-1.3); BLOOD UREA NITROGEN 4 mg/dl (7-17); CALCIUM 8.2 mg/dL (8.4-10.2); CARBON DIOXIDE 27 mmol/L (22-30); CHLORIDE 104 mmol/L (98-107); GFR AFRICAN-AMERICAN > 60; GLUCOSE,RANDOM 99 mg/dL (65-105); SODIUM 139 mmol/l (132-148); TOTAL PROTEIN 5.7 G/DL (6.3-8.2)
--- NOTE | 2017-04-20 07:46 | CP.PCM.PN ---
Subjective - Date & Time of Evaluation Date of Evaluation: 04/20/17 Time of Evaluation: 07:48 - Subjective Subjective: Surgery Pt s&e. Low grade fever 100.4 yesterday. Denies N/V/D/CP/SOB. + amb + void. + BM. Pain controlled. Drain and vac in place Objective - Vital Signs/Intake and Output Vital Signs (last 24 hours): Temp Pulse Resp BP Pulse Ox 98.3 F 100 H 20 95/60 L 100 04/20/17 01:27 04/20/17 01:27 04/20/17 01:27 04/20/17 01:27 04/20/17 01:27 - Medications Medications: Current Medications Acetaminophen (Tylenol 325mg Tab) 975 mg PO Q6 PRN PRN Reason: Fever >100.4 F Last Admin: 04/19/17 17:20 Dose: 975 mg Aripiprazole (Abilify) 10 mg PO HS [facility] Last Admin: 04/19/17 21:01 Dose: 10 mg Bacitracin (Bacitracin Oint) 1 applic TOP BID [facility] Last Admin: 04/19/17 16:26 Dose: 1 applic Ciprofloxacin (Cipro) 500 mg PO 0000,1200 [facility] Last Admin: 04/20/17 00:36 Dose: 500 mg Docusate Sodium (Colace) 100 mg PO DAILY [facility] Last Admin: 04/19/17 09:05 Dose: 100 mg Famotidine (Pepcid) 20 mg PO BID [facility] Last Admin: 04/19/17 16:25 Dose: 20 mg Gabapentin (Neurontin) 300 mg PO BID [facility] Last Admin: 04/19/17 16:25 Dose: 300 mg Heparin Sodium (Porcine) (Heparin) 5,000 units SC Q8 [facility] PRN Reason: Protocol Last Admin: 04/20/17 00:37 Dose: 5,000 units Home Med (Patient's Own Medication) 1 unit PO DAILY [facility] Last Admin: 04/19/17 09:07 Dose: 1 unit Hydromorphone HCl (Dilaudid) 1 mg IVP Q3 PRN PRN Reason: Pain, severe (8-10) Last Admin: 04/20/17 05:04 Dose: 1 mg Ampicillin Sodium/Sulbactam (Sodium 1.5 gm/ Sodium Chloride) 100 mls @ 100 mls/ hr IVPB Q6 [facility] Last Admin: 04/20/17 04:58 Dose: 100 mls/hr Lactated Ringer's (Lactated Ringer's) 1,000 mls @ 100 mls/hr IV .Q10H [facility] Last Admin: 04/19/17 22:18 Dose: Not Given Ketorolac Tromethamine (Toradol) 30 mg IVP Q6 PRN PRN Reason: Pain, severe (8-10) Last Admin: 04/13/17 01:08 Dose: 30 mg Ketorolac Tromethamine (Toradol) 15 mg IVP Q6 PRN PRN Reason: Pain, moderate (4-7) Mirtazapine (Remeron) 30 mg PO HS [facility] Last Admin: 04/19/17 21:01 Dose: 30 mg Oxycodone/Acetaminophen (Percocet 5/325 Mg Tab) 2 tab PO Q4 PRN PRN Reason: Pain, moderate (4-7) Stop: 04/22/17 16:21 Spironolactone (Aldactone) 50 mg PO BID [facility] Last Admin: 04/19/17 16:26 Dose: 50 mg - Labs Labs: 04/20/17 06:15 04/19/17 06:30 PT 11.2 Seconds (9.8-13.1) 04/12/17 23:54 INR 1.1 (0.9-1.2) 04/12/17 23:54 - Constitutional Appears: No Acute Distress - Head Exam Head Exam: ATRAUMATIC, NORMAL INSPECTION, NORMOCEPHALIC - Eye Exam Eye Exam: EOMI, Normal appearance, PERRL Pupil Exam: NORMAL ACCOMODATION, PERRL - ENT Exam ENT Exam: Mucous Membranes Moist, Normal Exam - Neck Exam Neck Exam: Full ROM, Normal Inspection. absent: Lymphadenopathy - Respiratory Exam Respiratory Exam: Clear to Ausculation Bilateral, NORMAL BREATHING PATTERN - Cardiovascular Exam Cardiovascular Exam: REGULAR RHYTHM, +S1, +S2. absent: Murmur - GI/Abdominal Exam GI & Abdominal Exam: Soft, Normal Bowel Sounds. absent: Tenderness - Rectal Exam Rectal Exam: NORMAL INSPECTION - Exam Exam: NORMAL INSPECTION - Extremities Exam Extremities Exam: Full ROM, Normal Capillary Refill, Normal Inspection. absent : Joint Swelling, Pedal Edema - Back Exam Back Exam: absent: NORMAL INSPECTION Additional comments: Vac in place no leak. 50cm incision . Drains in place 120cc ss - Neurological Exam Neurological Exam: Alert, Awake, CN II-XII Intact, Normal Gait, Oriented x3 - Psychiatric Exam Psychiatric exam: Normal Affect, Normal Mood - Skin Skin Exam: Dry, Intact, Normal Color, Warm Assessment and Plan - Assessment and Plan (Free Text) Assessment: 36 F s/p staged debridement and closure of flap POD #4 who required multiple transfusions Hgb improved Regular diet Pain control DC with home wound vac, drains and ciprofloxacin for 14 days: script in chart. f/u with Dr. Kyle 1 week after DC Will DW Dr. Kyle
[2017-04-20 07:58] VITALS: BP 124/78; PULSE 56; TEMP 98.1; O2SAT 97
[2017-04-20] MEDS: Lactated Ringer's 1,000 ML IV SCH (08:04)
[2017-04-20] MEDS: VALTREX 500 MG PO SCH (10:04)
--- NOTE | 2017-04-20 10:04 | CP.PCM.DIS ---
Provider - Provider Date of Admission: 04/12/17 22:37 Attending physician: Quincy García Consults: plastic surgery consult Time Spent in preparation of Discharge (in minutes): 20 Hospital Course - Lab Results Lab Results: Micro Results 04/18/17 08:04 Urine,Clean Catch Urine Culture - Final No Growth (<1,000 CFU/ML) 04/18/17 17:30 Blood Transfusion Bag Gram Stain - Final 04/18/17 17:30 Blood Transfusion Bag - Preliminary NO GROWTH AFTER 24 HOURS 04/12/17 23:54 Blood Blood Culture - Final NO GROWTH AFTER 5 DAYS 04/12/17 23:54 Blood Gram Stain - Final TEST NOT PERFORMED Most Recent Lab Values WBC 9.2 K/uL (4.8-10.8) 04/20/17 06:15 RBC 2.84 Mil/uL (3.80-5.20) L 04/20/17 06:15 Hgb 9.2 g/dL (12.0-16.0) L 04/20/17 06:15 Hct 25.9 % (34.0-47.0) L 04/20/17 06:15 MCV 91.4 fl (81.0-99.0) 04/20/17 06:15 MCH 32.4 pg (27.0-31.0) H 04/20/17 06:15 MCHC 35.4 g/dL (33.0-37.0) 04/20/17 06:15 RDW 15.4 % (11.5-14.5) H 04/20/17 06:15 Plt Count 276 K/uL (130-400) 04/20/17 06:15 MPV 7.7 fl (7.2-11.7) 04/20/17 06:15 Neut % (Auto) 64.5 % (50.0-75.0) 04/20/17 06:15 Lymph % (Auto) 21.9 % (20.0-40.0) 04/20/17 06:15 [place] % (Auto) 11.7 % (0.0-10.0) H 04/20/17 06:15 Eos % (Auto) 1.7 % (0.0-4.0) 04/20/17 06:15 Baso % (Auto) 0.2 % (0.0-2.0) 04/20/17 06:15 Neut # 5.9 K/uL (1.8-7.0) 04/20/17 06:15 Lymph # 2.0 K/uL (1.0-4.3) 04/20/17 06:15 [place] # 1.1 K/uL (0.0-0.8) H 04/20/17 06:15 Eos # 0.2 K/uL (0.0-0.7) 04/20/17 06:15 Baso # 0.0 K/uL (0.0-0.2) 04/20/17 06:15 ESR 15 mm/hr (0-20) 04/13/17 11:00 PT 11.2 Seconds (9.8-13.1) 04/12/17 23:54 INR 1.1 (0.9-1.2) 04/12/17 23:54 Lupus Anticoagulant see note 04/13/17 11:00 LA PTT Screen 37 sec (<=40) 04/13/17 11:00 dRVVT Mixing Study 30 sec (<=45) 04/13/17 11:00 dRVVT Mix Interpret Not indicated 04/13/17 11:00 Sodium 139 mmol/l (132-148) 04/20/17 06:15 Potassium 4.0 MMOL/L (3.6-5.0) 04/20/17 06:15 Chloride 104 mmol/L (98-107) 04/20/17 06:15 Carbon Dioxide 27 mmol/L (22-30) 04/20/17 06:15 Anion Gap 12 (10-20) 04/20/17 06:15 BUN 4 mg/dl (7-17) L 04/20/17 06:15 Creatinine 0.7 mg/dL (0.7-1.2) 04/20/17 06:15 Est GFR ( Amer) > 60 04/20/17 06:15 Est GFR (Non-Af Amer) > 60 04/20/17 06:15 Random Glucose 99 mg/dL (65-105) 04/20/17 06:15 Calcium 8.2 mg/dL (8.4-10.2) L 04/20/17 06:15 Total Bilirubin 0.2 mg/dl (0.2-1.3) 04/20/17 06:15 AST 22 U/L (14-36) 04/20/17 06:15 ALT 27 U/L (9-52) 04/20/17 06:15 Alkaline Phosphatase 48 U/L (38-126) 04/20/17 06:15 C-React Prot High Sens 0.19 mg/L (1.00-3.00) L 04/13/17 11:00 Total Protein 5.7 G/DL (6.3-8.2) L 04/20/17 06:15 Total Protein (PEP) 6.2 g/dL (6.1-8.1) 04/13/17 11:00 Albumin 2.7 g/dL (3.5-5.0) L D 04/20/17 06:15 Albumin (PEP) 3.2 g/dL (3.8-4.8) L 04/13/17 11:00 Globulin 3.0 gm/dL (2.2-3.9) 04/20/17 06:15 Albumin/Globulin Ratio 0.9 (1.0-2.1) L 04/20/17 06:15 Kdvoc-0-Zvemfjxgf 0.2 g/dL (0.2-0.3) 04/13/17 11:00 Tcwau-3-Pndemrohd 0.6 g/dL (0.5-0.9) 04/13/17 11:00 Ahyo-2-Obvoljzl 0.4 g/dL (0.4-0.6) 04/13/17 11:00 Ptbf-4-Cjhsbdnc 0.3 g/dL (0.2-0.5) 04/13/17 11:00 Gamma Globulins 1.6 g/dL (0.8-1.7) 04/13/17 11:00 Abnorm Protein Band 1 TEST NOT PERFORMED 04/13/17 11:00 Abnorm Protein Band 2 TEST NOT PERFORMED 04/13/17 11:00 Abnorm Protein Band 3 TEST NOT PERFORMED 04/13/17 11:00 Angiotensin Convert Enz 42 U/L (9-67) 04/13/17 11:00 Urine Color Straw (YELLOW) 04/18/17 07:22 Urine Clarity Clear (Clear) 04/18/17 07:22 Urine pH 6.0 (5.0-8.0) 04/18/17 07:22 Ur Specific [place] 1.010 (1.003-1.030) 04/18/17 07:22 Urine Protein Negative mg/dL (NEGATIVE) 04/18/17 07:22 Urine Glucose (UA) Neg mg/dL (Normal) 04/18/17 07:22 Urine Ketones Negative mg/dL (NEGATIVE) 04/18/17 07:22 Urine Blood Negative (NEGATIVE) 04/18/17 07: Urine Nitrate Negative (NEGATIVE) 04/18/17 07: Urine Bilirubin Negative (NEGATIVE) 04/18/17 07:22 Urine Urobilinogen 0.2-1.0 mg/dL (0.2-1.0) 04/18/17 07:22 Ur Leukocyte Esterase Neg [place]/uL (Negative) 04/18/17 07: Urine RBC (Auto) 2 /hpf (0-3) 04/18/17 07:22 Urine Microscopic WBC 1 /hpf (0-5) 04/18/17 07: Ur Squamous Epith Cells 5 /hpf (0-5) 04/18/17 07:22 Urine Bacteria Occ (<OCC) H 04/18/17 07:22 IgG, Serum (MS) 62.6 mg/dL (4-86) 04/13/17 11:00 IgG 1684.8 mg/dL (700.0-1600.0) H 04/13/17 11:00 IgA 110.1 mg/dL (70.0-400.0) 04/13/17 11:00 IgM 55.0 mg/dL (40.0-230.0) 04/13/17 11:00 IgE 8 kU/L (<ro=544) 04/13/17 11:00 JEZ & SPEP Interp See note 04/13/17 11:00 Serum Immunofixation Not detected (Not Detected) 04/13/17 11:00 Rheumatoid Factor IgG <5 U (<=6) 04/13/17 11:00 Rheumatoid Factor IgA <5 U (<=6) 04/13/17 11:00 Rheumatoid Factor IgM <5 U (<=6) 04/13/17 11:00 EMILIANO Screen Positive (Negative) H 04/13/17 11:00 EMILIANO Titer 1:320 Titer (<1:40) H 04/13/17 11:00 EMILIANO Titer 2 TEST NOT PERFORMED 04/13/17 11:00 EMILIANO Pattern Nucleolar H 04/13/17 11:00 EMILIANO Pattern 2 TEST NOT PERFORMED 04/13/17 11:00 SS-A Antibody <1.0 AI (<1.0) 04/13/17 11:00 SS-B Ab Interp Negative (Negative) 04/13/17 11:00 SS-B Antibody <1.0 AI (<1.0) 04/13/17 11:00 SS-B Ab Interp Negative (Negative) 04/13/17 11:00 Tot Complement (CH50) 50 U/mL (31-60) 04/13/17 11:00 Absolute Lymphs (Flow) 1980 Cells/mcL (850-3900) 04/13/17 11:00 % CD3 Cells 71 Percent (57-85) 04/13/17 11:00 Absolute CD3 Count 1403 Cells/mcL (840-3060) 04/13/17 11:00 % CD4 Cells 51 Percent (30-61) 04/13/17 11:00 Absolute CD4 Count 1005 Cells/mcL (490-1740) 04/13/17 11:00 T-Help/Suppress Ratio 2.63 Ratio (0.86-5.00) 04/13/17 11:00 % CD8 Cells 19 Percent (12-42) 04/13/17 11:00 Absolute CD8 Count 383 Cells/mcL (180-1170) 04/13/17 11:00 Blood Type O POSITIVE 04/16/17 06:30 Blood Type Confirm O POSITIVE 04/13/17 04:30 Antibody Screen Negative 04/16/17 06:30 Crossmatch See Detail 04/16/17 06:30 Reaction Clerical Check No discrepancy (NO DISCREPA) 04/18/17 20:00 Pre-Trans Blood Type O POSITIVE 04/18/17 20:00 Pre-Trans Bld Appearanc No hemolysis (NO HEMOLYSI) 04/18/17 20:00 Pre-Trans CATARINO Negative (NEGATIVE) 04/18/17 20:00 Post-Trans Blood Type O POSITIVE 04/18/17 20:00 Post-Trans Spec Appear No hemolysis (NO HEMOLYSI) 04/18/17 20:00 Post-Trans CATARINO Negative (NEGATIVE) 04/18/17 20:00 BBK History Checked Patient has bt 04/16/17 06:30 - Hospital Course Hospital Course: 36 yo female with history of seizure, anxiety/depression had Fat injected into her buttocks and a year ago an unknown substance was likewise injected in her buttocks for augmentation. She came into the ER complaining of worsening pain on erythematous lumpy masses on both buttocks (left>right) radiating to the lower back.She was admitted with cellulitis and soft tissue necrosis, started on IV antibiotics and plastic surgery consulted . She underwent surgical debridment and flap closure with wound vac placement. Post op she developed acute blood loss anemia and was transfused with total 5 unit PRBC with Hgb today 9.2 .At present doing well, pain controlled and wants to go home.Will discharge patient home on Ciprofloxacin PO for 14 days. patient to follow up with Dr. Kyle in 1 week Provided with prescription for Ferrous sulfate for anemia and colace for constipation. 1. Cellulitis with soft tissue Necrosis at both Buttocks s/p surgical debridement in 2 stages and closure with flap, POD # 4 wound vacs and SARAH drain in place and draining bloody material received unasyn IV while in hospital will d/c on Cipro Po and pain medications Follow up with plastic surgery Dr. Kyle in 1 week 2.Acute Blood Loss Anemia Hgb: 9.2 s/p total 5 unit PRBc transfusion Started on ferrous sulafte 3. Lower back pain MRI of lower back and pelvis : no compression fractures, no disc herniation, scattered subcutaneous granulomata extending to the level of L3 likely migration from numerous granulomas within the soft tissues of the buttocks Continue pain management 4. Anxiety/Depression continue Ghada Carrillo Klonopin PRN Dr Montemayor psychiatrist consulted 5. DVT prophylaxis received Heparin 5000 units SC q 8hrs 6. Fever Possible transfusion reaction Patient had Tmax 102.6 during transfusion and was treated with Benadryl and Motrin CXR showed possible atelectasis , or new infiltrates.patient is asymptomatic with npo cough or SOB. Continue incentive spirometry and ambulation UA - with no LE , no nitrates ' Discharge Exam - Head Exam Head Exam: ATRAUMATIC, NORMAL INSPECTION, NORMOCEPHALIC - Eye Exam Eye Exam: EOMI, Normal appearance, PERRL Pupil Exam: NORMAL ACCOMODATION - ENT Exam ENT Exam: Mucous Membranes Moist, Normal Exam - Neck Exam Neck exam: Full Rom, Normal Inspection - Respiratory Exam Respiratory Exam: Clear to PA & Lateral, NORMAL BREATHING PATTERN. absent: Rales, Rhonchi, Wheezes - Cardiovascular Exam Cardiovascular Exam: REGULAR RHYTHM, RRR, +S1, +S2. absent: JVD - GI/Abdominal Exam GI & Abdominal Exam: Normal Bowel Sounds, Soft. absent: Distended, Guarding, Rebound, Tenderness - Rectal Exam Rectal Exam: Deferred - Exam Additional comments: superior to gluteal area bilaterally wound vacs present SARAH drains in place with sero sanguinous output - Extremities Exam Extremities exam: normal capillary refill, normal inspection, pedal pulses present - Back Exam Back exam: NORMAL INSPECTION - Neurological Exam Neurological exam: Alert, CN II-XII Intact, Oriented x3, Reflexes Normal - Psychiatric Exam Psychiatric exam: Normal Affect, Normal Mood - Skin Skin Exam: Dry, Warm Discharge Plan - Discharge Medications Prescriptions: Ciprofloxacin [Cipro] 500 mg PO BID #20 tab oxyCODONE/Acetaminophen [Percocet 5/325 mg Tab] 1 ea PO Q4 PRN #30 tab PRN Reason: Pain, Severe (8-10) - Follow Up Plan Condition: STABLE Disposition: HOME/ ROUTINE Patient education suggested?: Yes Instructions: [place]-Adam Drain Care (DC), Acute Wound Care (DC), Debridement (DC), Negative Pressure Wound Therapy (DC) Additional Instructions: Ambulate in house. No exercise or extensive walking. Drink normal amount of flud. Measure each drain in the morning and at night and record. Bring information to Doctor's office each week. No shower until drains and wound vac removed. MD will let you know when you can shower. Use incentive spirometry q2h to prevent pneumonia. Referrals: Laura Kyle [Medical Doctor] -
[2017-04-20] MEDS: Bacitracin OINT 15GM TOP SCH (10:05)
== END 2017-04-20 16:00 | disposition home or self-care (01) | DRG 580 ==
LOC: H.ER 20:06 → H.ERHOLD 22:37 → H.MEDSURG1 04-13 00:46
PROVIDERS: ADMIT Internal Medicine; ATTEND Internal Medicine
PROC: 0KBN0ZZ Excision of Right Hip Muscle, Open Approach (ICD-10-PCS; 2017-04-14)
PROC: 0KBP0ZZ Excision of Left Hip Muscle, Open Approach (ICD-10-PCS; 2017-04-14)
PROC: 0HC6XZZ Extirpation of Matter from Back Skin, External Approach (ICD-10-PCS; 2017-04-14)
PROC: 0HCHXZZ Extirpation of Matter from Right Upper Leg Skin, External Approach (ICD-10-PCS; 2017-04-14)
PROC: 0HCJXZZ Extirpation of Matter from Left Upper Leg Skin, External Approach (ICD-10-PCS; 2017-04-14)
PROC: 0HC8XZZ Extirpation of Matter from Buttock Skin, External Approach (ICD-10-PCS; 2017-04-14)
PROC: 0HD6XZZ Extraction of Back Skin, External Approach (ICD-10-PCS; 2017-04-14)
PROC: 30233N1 Transfusion of Nonautologous Red Blood Cells into Peripheral Vein, Percutaneous Approach (ICD-10-PCS; 2017-04-14)
PROC: 0HD8XZZ Extraction of Buttock Skin, External Approach (ICD-10-PCS; principal; 2017-04-14 07:45)
PROC: 0HC8XZZ Extirpation of Matter from Buttock Skin, External Approach (ICD-10-PCS; 2017-04-16)
PROC: 0HCHXZZ Extirpation of Matter from Right Upper Leg Skin, External Approach (ICD-10-PCS; 2017-04-16)
PROC: 0HCJXZZ Extirpation of Matter from Left Upper Leg Skin, External Approach (ICD-10-PCS; 2017-04-16)
PROC: 0HQ8XZZ Repair Buttock Skin, External Approach (ICD-10-PCS; 2017-04-16)
PROC: 0HQJXZZ Repair Left Upper Leg Skin, External Approach (ICD-10-PCS; 2017-04-16)
PROC: 0HQHXZZ Repair Right Upper Leg Skin, External Approach (ICD-10-PCS; 2017-04-16)
DX: L03.317 Cellulitis of buttock (principal); I96 Gangrene, not elsewhere classified; D62 Acute posthemorrhagic anemia; L03.312 Cellulitis of back [any part except buttock and flank]; J98.11 Atelectasis; D50.0 Iron deficiency anemia secondary to blood loss (chronic); F31.9 Bipolar disorder, unspecified; F41.9 Anxiety disorder, unspecified; T80.89XA Other complications following infusion, transfusion and therapeutic injection, initial encounter; R50.81 Fever presenting with conditions classified elsewhere; Y84.8 Other medical procedures as the cause of abnormal reaction of the patient, or of later complication, without mention of misadventure at the time of the procedure; M54.5 Low back pain; F32.9 Major depressive disorder, single episode, unspecified